=== PATIENT | male | born 1950 | race Caucasian/White ===

== ENCOUNTER 2018-02-03 09:59 | Outpatient (RCR) | payer OTHER, SELFPAY ==
[2018-02-03 10:29] VITALS: BP 108/55; PULSE 60; RESP 16; TEMP 35.8; BMI 26.2
--- NOTE | 2018-02-03 12:07 | WC ---
PT COMES WITHOUT MED LIST, RECENT H&P, RECENT SURGICAL NOTES FROM F. CALLED AND SPOKE W/ HIS NURSE. SHE WILL FAX WHAT SHE HAS AVAILABLE NOW.
--- NOTE | 2018-02-03 17:20 | PCM.WC.HP ---
(1) Ulcer of right lower extremity with fat layer exposed Status: Acute Code(s): L97.912 - Non-pressure chronic ulcer of unspecified part of right lower leg with fat layer exposed (2) Ulcer of left lower extremity with fat layer exposed Status: Acute Code(s): L97.922 - Non-pressure chronic ulcer of unspecified part of left lower leg with fat layer exposed (3) Pressure ulcer, heel, left, unstageable Status: Acute Code(s): L89.620 - Pressure ulcer of left heel, unstageable (4) Diabetic ulcer of left foot Status: Acute Code(s): E11.621 - Type 2 diabetes mellitus with foot ulcer; L97.529 - Non-pressure chronic ulcer of other part of left foot with unspecified severity (5) Peripheral arterial disease Status: Acute Code(s): I73.9 - Peripheral vascular disease, unspecified (6) BKA stump complication Status: Acute Code(s): T87.9 - Unspecified complications of amputation stump (7) S/P BKA (below knee amputation) unilateral Status: Acute Code(s): Z89.519 - Acquired absence of unspecified leg below knee (8) Charcot foot due to diabetes mellitus Status: Acute Code(s): E11.610 - Type 2 diabetes mellitus with diabetic neuropathic arthropathy (9) Charcot ankle Status: Acute Code(s): M14.679 - Charcot's joint, unspecified ankle and foot History of Present Illness Date of Service: 02/03/18 Chief Complaint: Bilateral lower extremity ulcers. Stump complication of right BKA. History of Wound: Mr. Merchant is a 68yo with an extensive PMH who presents here due to chronic non healing bilateral lower extremity ulcers. He recently had a BKA of his right lower extremity due to PAD and a non healing foot ulcer. Per patient, he initially had a Toe amputation but went on further to a BKA due to non healing wound. BKA was sent to have been in [facility] in [place]. He reports subssequently developing stump complication after surgery and has used a wound vac to the wound. His other right extremity ulcer was said to be due to trauma and he has been applying betadine in the long term. He is unsure of how he sustained his left lower extremity ulcers. He states that he had vascular studies of his left lower extremity before his BKA and to the best of his knowledge, he does not have any vascular insufficiency. He has several alvarez ulcers and an extensive heel ulcer with sinificnat eschar formation. He admits to being predominantly sedentary. He otherwise states that he feels well and denies chills, fever, nausea, vomiting or any change in bowel habits. He resides in a long term. Past Medical History Past Medical History: Chronic Problems Open wound of plantar aspect of foot (Chronic) Orthostatic hypotension dysautonomic syndrome (Chronic) CKD (chronic kidney disease), stage III (Chronic) CAD (coronary artery disease) (Chronic) s/p cabg x 3 2010 5 stents last 2006 MRSA bacteremia (Chronic) Diabetic foot infection (Chronic) Diabetes (Chronic) Surgical History: - - RLE stent, BL LE angioplasty, cardiac stents, cardiac catheterizations, CABG x 3, toe amputation. Allergies/Adverse Reactions: Allergies atorvastatin calcium [From Lipitor] Adverse Reaction (Verified 07/30/15 16:32) SEVERE LEG CRAMPS Home Medications: Ambulatory Orders Medication Instructions Recorded Amiodarone HCl [Pacerone] 100 mg PO DAILY 08/02/13 Aspirin [Aspirin, Baby] 81 mg PO DAILY@0800 08/02/13 Carvedilol [Coreg (Beta Farideh)] 6.25 mg PO BID 08/02/13 Finasteride [Proscar] 5 mg PO DAILY 08/02/13 Furosemide [Lasix] 80 mg PO BIDLX 08/02/13 Insulin Glargine [Lantus SoloStar 12 units SC QHS 08/02/13 Pen] Levothyroxine [Synthroid] 125 mcg PO DAILY 08/02/13 Novolog Flexpen 14 units SC TIDCM 08/02/13 Pravastatin [Pravachol] 80 mg PO DAILY 08/02/13 Spironolactone [Aldactone] 50 mg PO DAILY 08/02/13 Linacolotide [Linzess] 145 mcg PO 07/30/15 blood sugar diagnostic strips See Dose Instructions .ROUTE 09/08/17 [id number] - Family History Maternal No pertinent history Smoking Status: Never smoker Review of Systems Constitutional: Denies: Anorexia, Chills, Fever Eyes: Denies: Pain, Redness HEENT: Denies: Difficulty Swallowing, Ear Pain, Head Aches Cardiovascular: Denies: Chest Pain, Chest Tightness Respiratory: Denies: Hemoptysis, Wheezing Gastrointestinal: Denies: Abdominal Pain, Hematemesis, Vomiting Skin: Denies: Jaundice - Physical Exam Vital Signs Temp Pulse Resp BP 96.4 F L 60 16 108/55 L 02/03/18 10:29 02/03/18 10:29 02/03/18 10:29 02/03/18 10:29 General: Alert, Oriented x3, Cooperative, No apparent distress HEENT: Atraumatic, Normocephalic Oral: Moist Mucosa Neck: Supple Lungs: Normal air movement Abdomen: Non Tender Extremities: No cyanosis, Edema Skin: Ulcer/ Wound Wound Measurements and Assessment WC - Nurse 1 - General Ulcer Measurement Start: 02/03/18 10:00 Freq: Status: Active Protocol: Activity Type Activity Date Activity User E-Sign Co-Sign Detail Recorded Client Recorded Date Recorded By Document 02/03/18 10:29 [facility] [id number] 02/03/18 11:00 [facility] 02/03/18 10:29 Wound Center Nurse 1 [Ulcer Assessment] #7- LT 3RD TOE DORSAL -Combined with other wound No -Current Size (cm) - Length 0.3 -Current Size (cm) - Width 0.5 -Current Size (cm) - Depth 0.1 -Total Square Cm 0.15 -Date of Last Picture (Recall this 02/03/18 field) -Photo Taken Yes -Epithelialization None Present -Tunneling No -Undermining/Tunneling No -Circular Undermining No -Exudate Amt None Present (0 %) -Wound Margin Distinct, Outline Attached -Granulation Amt None Present (0 %) -Slough/Fibrin Yes -Necrosis Amt Large (67-100%) -Necrotic Tissue Type Eschar -Structure Exposed N/A -Texture (Eliza-wound Skin Appearance) Scarring -Moisture (Eliza-wound Skin Appearance Dry/Scaly ) -Color (Eliza-wound Skin Appearance) Erythema -Temperature (Eliza-wound Skin No Abnormality Appearance) (Pt Warm) -Tenderness on Palpation (Eliza-wound No Skin Appearance) -Ulcer Cleansing Rinsed/ Irrigated with Saline -Foul Odor after Cleansing No -Anesthetic Used 5% Lidocaine Gel #6- LT HEEL -Combined with other wound No -Current Size (cm) - Length 4.6 -Current Size (cm) - Width 6.5 -Current Size (cm) - Depth 0.1 -Total Square Cm 29.90 -Date of Last Picture (Recall this 02/03/18 field) -Photo Taken Yes -Epithelialization None Present -Tunneling No -Undermining/Tunneling No -Circular Undermining No -Exudate Amt None Present (0 %) -Wound Margin Distinct, Outline Attached -Granulation Amt None Present (0 %) -Slough/Fibrin Yes -Necrosis Amt Large (67-100%) -Necrotic Tissue Type Eschar -Structure Exposed N/A -Texture (Eliza-wound Skin Appearance) Scarring -Moisture (Eliza-wound Skin Appearance Dry/Scaly ) -Color (Eliza-wound Skin Appearance) Erythema -Temperature (Eliza-wound Skin No Abnormality Appearance) (Pt Warm) -Tenderness on Palpation (Eliza-wound No Skin Appearance) -Ulcer Cleansing Rinsed/ Irrigated with Saline -Foul Odor after Cleansing No -Anesthetic Used 5% Lidocaine Gel #5- LT ALVAREZ CLUSTER -Combined with other wound No -Current Size (cm) - Length 17 -Current Size (cm) - Width 1.6 -Current Size (cm) - Depth 0.1 -Total Square Cm 27.2 -Date of Last Picture (Recall this 02/03/18 field) -Photo Taken Yes -Epithelialization None Present -Tunneling No -Undermining/Tunneling No -Circular Undermining No -Exudate Amt Small (1-33%) -Exudate Type Serous -Wound Margin Distinct, Outline Attached -Granulation Amt None Present (0 %) -Slough/Fibrin Yes -Necrosis Amt Large (67-100%) -Necrotic Tissue Type Eschar -Structure Exposed N/A -Texture (Eliza-wound Skin Appearance) Scarring -Moisture (Eliza-wound Skin Appearance Dry/Scaly ) -Color (Eliza-wound Skin Appearance) Erythema -Temperature (Eliza-wound Skin No Abnormality Appearance) (Pt Warm) -Tenderness on Palpation (Eliza-wound No Skin Appearance) -Ulcer Cleansing Rinsed/ Irrigated with Saline -Foul Odor after Cleansing No -Anesthetic Used 5% Lidocaine Gel #4- RT LT UPPER LEG -Combined with other wound No -Current Size (cm) - Length 0.9 -Current Size (cm) - Width 1.1 -Current Size (cm) - Depth 0.1 -Total Square Cm 0.99 -Date of Last Picture (Recall this 02/03/18 field) -Photo Taken Yes -Epithelialization None Present -Tunneling No -Undermining/Tunneling No -Circular Undermining No -Exudate Amt None Present (0 %) -Wound Margin Distinct, Outline Attached -Granulation Amt None Present (0 %) -Slough/Fibrin Yes -Necrosis Amt Large (67-100%) -Necrotic Tissue Type Eschar -Structure Exposed N/A -Texture (Eliza-wound Skin Appearance) Scarring -Moisture (Eliza-wound Skin Appearance Dry/Scaly ) -Color (Eliza-wound Skin Appearance) Assessed -Temperature (Eliza-wound Skin No Abnormality Appearance) (Pt Warm) -Tenderness on Palpation (Eliza-wound No Skin Appearance) -Ulcer Cleansing Rinsed/ Irrigated with Saline -Foul Odor after Cleansing No -Anesthetic Used 5% Lidocaine Gel #3- R INFERIOR ALVAREZ POST BKA AMP -Combined with other wound No -Current Size (cm) - Length 2.2 -Current Size (cm) - Width 3.9 -Current Size (cm) - Depth 1.1 -Total Square Cm 8.58 -Date of Last Picture (Recall this 02/03/18 field) -Photo Taken Yes -Epithelialization None Present -Tunneling No -Undermining/Tunneling No -Circular Undermining No -Exudate Amt Medium (34-66%) -Exudate Type Serosanguineous -Wound Margin Distinct, Outline Attached -Granulation Amt Medium (34-66%) -Granulation Quality [place] -Slough/Fibrin Yes -Necrosis Amt Small (1-33%) -Structure Exposed N/A -Texture (Eliza-wound Skin Appearance) Scarring -Moisture (Eliza-wound Skin Appearance Assessed ) Dry/Scaly -Color (Eliza-wound Skin Appearance) Erythema -Temperature (Eliza-wound Skin No Abnormality Appearance) (Pt Warm) -Tenderness on Palpation (Eliza-wound No Skin Appearance) -Ulcer Cleansing Rinsed/ Irrigated with Saline -Foul Odor after Cleansing No -Anesthetic Used 5% Lidocaine Gel 2- R SUPERIOR ALVAREZ CLUSTER -Combined with other wound No -Current Size (cm) - Length 4.3 -Current Size (cm) - Width 2.2 -Current Size (cm) - Depth 0.1 -Total Square Cm 9.46 -Date of Last Picture (Recall this 02/03/18 field) -Photo Taken Yes -Epithelialization None Present -Tunneling No -Undermining/Tunneling No -Circular Undermining No -Exudate Amt Small (1-33%) -Exudate Type Serosanguineous -Wound Margin Distinct, Outline Attached -Granulation Amt None Present (0 %) -Slough/Fibrin Yes -Necrosis Amt Large (67-100%) -Necrotic Tissue Type Eschar -Structure Exposed N/A -Texture (Eliza-wound Skin Appearance) Scarring -Moisture (Eliza-wound Skin Appearance Assessed ) -Color (Eliza-wound Skin Appearance) Erythema -Temperature (Eliza-wound Skin No Abnormality Appearance) (Pt Warm) -Tenderness on Palpation (Eliza-wound No Skin Appearance) -Ulcer Cleansing Rinsed/ Irrigated with Saline -Foul Odor after Cleansing No -Anesthetic Used 5% Lidocaine Gel [Edema Assessment] -Lower Limb Edema Present Yes -Left Calf (cm) 41.5 -Left Ankle (cm) 26.4 Musculoskeletal: No Muscle Wasting Neurological: Cranial nerves II-XII grossly intact Psych/Mental Status: Normal Affect Debridement Note Wound debrided: Right Alvarez ( Inferior stump ) Wound Grade/Stage: Beltran II Type of Debridement: Excisional debridement Anesthesia Used: 5% Lidocaine Gel Depth: Down to and including healthy tissue, in the subcutaneous layer Percentage of wound debrided: 100 Instrument Used: 5mm curette Tissue Removed: Slough and devitalized tissue Severity: Fat Layer Exposed Amount of bleeding with debridement: Mild Bleeding Controlled with: Pressure Patient tolerated procedure well - Additional Wound Wound debrided: Right Alvarez ( Superior stump ) Wound Grade/Stage: Beltran II Type of Debridement: Excisional debridement Anesthesia Used: 5% Lidocaine Gel Depth: Down to and including healthy tissue, in the subcutaneous layer Percentage of wound debrided: 100 Instrument Used: 5mm curette, #15 blade Tissue Removed: Slough, Eschar and devitalized tissue Severity: Fat Layer Exposed Amount of bleeding with debridement: Mild Bleeding Controlled with: Pressure Patient tolerated procedure: Patient tolerated procedure well - Additional Wound Wound debrided: Right lateral lower extremity Wound Grade/Stage: Beltran I Type of Debridement: Excisional debridement Anesthesia Used: 5% Lidocaine Gel Depth: Down to and including healthy tissue, in the subcutaneous layer Percentage of wound debrided: 100 Instrument Used: 5mm curette Tissue Removed: Devitalized tissue Severity: Fat Layer Exposed Amount of bleeding with debridement: Mild Bleeding Controlled with: Pressure Patient tolerated procedure: Patient tolerated procedure well - Additional Wound Wound debrided: Left Alvarez ( Superior ) Wound Grade/Stage: Beltran II Type of Debridement: Excisional debridement Anesthesia Used: 5% Lidocaine Gel Depth: Down to and including healthy tissue, in the subcutaneous layer Instrument Used: 5mm curette Tissue Removed: Slough and devitalized tissue Severity: Fat Layer Exposed Amount of bleeding with debridement: Mild Bleeding Controlled with: Pressure Patient tolerated procedure: Patient tolerated procedure well - Additional Wound Wound debrided: Left Alvarez ( Inferior ) Wound Grade/Stage: Beltran II Type of Debridement: Excisional debridement Anesthesia Used: 5% Lidocaine Gel Depth: Down to and including healthy tissue, in the subcutaneous layer Percentage of wound debrided: 100 Instrument Used: 5mm curette Tissue Removed: Slough and devitalized tissue Severity: Fat Layer Exposed Amount of bleeding with debridement: Mild Bleeding Controlled with: Pressure Patient tolerated procedure: Patient tolerated procedure well - Additional Wound Wound debrided: Left Toe Wound Grade/Stage: Beltran I Type of Debridement: Excisional debridement Anesthesia Used: 5% Lidocaine Gel Depth: Down to and including healthy tissue, in the subcutaneous layer Percentage of wound debrided: 100 Instrument Used: 5mm curette Tissue Removed: Slough and devitalized tissue Severity: Fat Layer Exposed Amount of bleeding with debridement: Mild Bleeding Controlled with: Pressure Patient tolerated procedure: Patient tolerated procedure well Assessment/Plan Assessment: Bilateral lower extremity ulcers. BKA stump complication. Peripheral arterial disease. Type 2 Diabetes Mellitus. Non healing wounds. Pressure ulcer. Plan: Mr. Merchant presents with chronic bilayeral lower extremity ulcers. He has been managed at his long term and has applied Betadine to his ulcers. At some point, he also had a wound Vac to his right stump wound but is currently without one. As stated in HPI, patient denies any PAD on the left but has significnat ulceration of the left lower extremity. Also has significant Charcot deformity of the foot with an old ( healed ) plantar ulcer. He has followed up with podiatry ( Dr. Allen ) in the past. Debridement of all ulcers done as documented above with only scoring done of the left heel ulcer due to significant thickened eschar. Cultures also taken. Previous work up requested including vascular studies. Apply Santyl daily to all ulcers. 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 Increased protein intake and supplements. Advised to follow up closely with his Postulant. Optimal blood sugar control also recommended. Follow up with PCP. Advised to call with any questions or concerns. Follow up in 1 week.
--- NOTE | 2018-02-03 17:30 | HP.PCM_ITS ---
(1) Ulcer of right lower extremity with fat layer exposed Status: Acute Code(s): L97.912 - Non-pressure chronic ulcer of unspecified part of right lower leg with fat layer exposed (2) Ulcer of left lower extremity with fat layer exposed Status: Acute Code(s): L97.922 - Non-pressure chronic ulcer of unspecified part of left lower leg with fat layer exposed (3) Pressure ulcer, heel, left, unstageable Status: Acute Code(s): L89.620 - Pressure ulcer of left heel, unstageable (4) Diabetic ulcer of left foot Status: Acute Code(s): E11.621 - Type 2 diabetes mellitus with foot ulcer; L97.529 - Non-pressure chronic ulcer of other part of left foot with unspecified severity (5) Peripheral arterial disease Status: Acute Code(s): I73.9 - Peripheral vascular disease, unspecified (6) BKA stump complication Status: Acute Code(s): T87.9 - Unspecified complications of amputation stump (7) S/P BKA (below knee amputation) unilateral Status: Acute Code(s): Z89.519 - Acquired absence of unspecified leg below knee (8) Charcot foot due to diabetes mellitus Status: Acute Code(s): E11.610 - Type 2 diabetes mellitus with diabetic neuropathic arthropathy (9) Charcot ankle Status: Acute Code(s): M14.679 - Charcot's joint, unspecified ankle and foot History of Present Illness Date of Service: 02/03/18 Chief Complaint: Bilateral lower extremity ulcers. Stump complication of right BKA. History of Wound: Mr. Merchant is a 68yo with an extensive PMH who presents here due to chronic non healing bilateral lower extremity ulcers. He recently had a BKA of his right lower extremity due to PAD and a non healing foot ulcer. Per patient, he initially had a Toe amputation but went on further to a BKA due to non healing wound. BKA was sent to have been in [facility] in [place]. He reports subssequently developing stump complication after surgery and has used a wound vac to the wound. His other right extremity ulcer was said to be due to trauma and he has been applying betadine in the [facility]. He is unsure of how he sustained his left lower extremity ulcers. He states that he had vascular studies of his left lower extremity before his BKA and to the best of his knowledge, he does not have any vascular insufficiency. He has several alvarez ulcers and an extensive heel ulcer with sinificnat eschar formation. He admits to being predominantly sedentary. He otherwise states that he feels well and denies chills, fever, nausea, vomiting or any change in bowel habits. He resides in a [facility]. Past Medical History Past Medical History: Chronic Problems Open wound of plantar aspect of foot (Chronic) Orthostatic hypotension dysautonomic syndrome (Chronic) CKD (chronic kidney disease), stage III (Chronic) CAD (coronary artery disease) (Chronic) s/p cabg x 3 2010 5 stents last 2006 MRSA bacteremia (Chronic) Diabetic foot infection (Chronic) Diabetes (Chronic) Surgical History: - - RLE stent, BL LE angioplasty, cardiac stents, cardiac catheterizations, CABG x 3, toe amputation. Allergies/Adverse Reactions: Allergies atorvastatin calcium [From Lipitor] Adverse Reaction (Verified 07/30/15 16:32) SEVERE LEG CRAMPS Home Medications: Ambulatory Orders Medication Instructions Recorded Amiodarone HCl [Pacerone] 100 mg PO DAILY 08/02/13 Aspirin [Aspirin, Baby] 81 mg PO DAILY@0800 08/02/13 Carvedilol [Coreg (Beta Farideh)] 6.25 mg PO BID 08/02/13 Finasteride [Proscar] 5 mg PO DAILY 08/02/13 Furosemide [Lasix] 80 mg PO BIDLX 08/02/13 Insulin Glargine [Lantus SoloStar 12 units SC QHS 08/02/13 Pen] Levothyroxine [Synthroid] 125 mcg PO DAILY 08/02/13 Novolog Flexpen 14 units SC TIDCM 08/02/13 Pravastatin [Pravachol] 80 mg PO DAILY 08/02/13 Spironolactone [Aldactone] 50 mg PO DAILY 08/02/13 Linacolotide [Linzess] 145 mcg PO 07/30/15 blood sugar diagnostic strips See Dose Instructions .ROUTE 09/08/17 .[id number] ea - Family History Maternal No pertinent history Smoking Status: Never smoker Review of Systems Constitutional: Denies: Anorexia, Chills, Fever Eyes: Denies: Pain, Redness HEENT: Denies: Difficulty Swallowing, Ear Pain, Head Aches Cardiovascular: Denies: Chest Pain, Chest Tightness Respiratory: Denies: Hemoptysis, Wheezing Gastrointestinal: Denies: Abdominal Pain, Hematemesis, Vomiting Skin: Denies: Jaundice - Physical Exam Vital Signs Temp Pulse Resp BP 96.4 F L 60 16 108/55 L 02/03/18 10:29 02/03/18 10:29 02/03/18 10:29 02/03/18 10:29 General: Alert, Oriented x3, Cooperative, No apparent distress HEENT: Atraumatic, Normocephalic Oral: Moist Mucosa Neck: Supple Lungs: Normal air movement Abdomen: Non Tender Extremities: No cyanosis, Edema Skin: Ulcer/ Wound Wound Measurements and Assessment WC - Nurse 1 - General Ulcer Measurement Start: 02/03/18 10:00 Freq: Status: Active Protocol: Activity Type Activity Date Activity User E-Sign Co-Sign Detail Recorded Client Recorded Date Recorded By Document 02/03/18 10:29 [facility] [id number] 02/03/18 11:00 [facility] 02/03/18 10:29 Wound Center Nurse 1 [Ulcer Assessment] #7- LT 3RD TOE DORSAL -Combined with other wound No -Current Size (cm) - Length 0.3 -Current Size (cm) - Width 0.5 -Current Size (cm) - Depth 0.1 -Total Square Cm 0.15 -Date of Last Picture (Recall this 02/03/18 field) -Photo Taken Yes -Epithelialization None Present -Tunneling No -Undermining/Tunneling No -Circular Undermining No -Exudate Amt None Present (0 %) -Wound Margin Distinct, Outline Attached -Granulation Amt None Present (0 %) -Slough/Fibrin Yes -Necrosis Amt Large (67-100%) -Necrotic Tissue Type Eschar -Structure Exposed N/A -Texture (Eliza-wound Skin Appearance) Scarring -Moisture (Eliza-wound Skin Appearance Dry/Scaly ) -Color (Eliza-wound Skin Appearance) Erythema -Temperature (Eliza-wound Skin No Abnormality Appearance) (Pt Warm) -Tenderness on Palpation (Eliza-wound No Skin Appearance) -Ulcer Cleansing Rinsed/ Irrigated with Saline -Foul Odor after Cleansing No -Anesthetic Used 5% Lidocaine Gel #6- LT HEEL -Combined with other wound No -Current Size (cm) - Length 4.6 -Current Size (cm) - Width 6.5 -Current Size (cm) - Depth 0.1 -Total Square Cm 29.90 -Date of Last Picture (Recall this 02/03/18 field) -Photo Taken Yes -Epithelialization None Present -Tunneling No -Undermining/Tunneling No -Circular Undermining No -Exudate Amt None Present (0 %) -Wound Margin Distinct, Outline Attached -Granulation Amt None Present (0 %) -Slough/Fibrin Yes -Necrosis Amt Large (67-100%) -Necrotic Tissue Type Eschar -Structure Exposed N/A -Texture (Elzia-wound Skin Appearance) Scarring -Moisture (Eliza-wound Skin Appearance Dry/Scaly ) -Color (Eliza-wound Skin Appearance) Erythema -Temperature (Eliza-wound Skin No Abnormality Appearance) (Pt Warm) -Tenderness on Palpation (Eliza-wound No Skin Appearance) -Ulcer Cleansing Rinsed/ Irrigated with Saline -Foul Odor after Cleansing No -Anesthetic Used 5% Lidocaine Gel #5- LT ALVAREZ CLUSTER -Combined with other wound No -Current Size (cm) - Length 17 -Current Size (cm) - Width 1.6 -Current Size (cm) - Depth 0.1 -Total Square Cm 27.2 -Date of Last Picture (Recall this 02/03/18 field) -Photo Taken Yes -Epithelialization None Present -Tunneling No -Undermining/Tunneling No -Circular Undermining No -Exudate Amt Small (1-33%) -Exudate Type Serous -Wound Margin Distinct, Outline Attached -Granulation Amt None Present (0 %) -Slough/Fibrin Yes -Necrosis Amt Large (67-100%) -Necrotic Tissue Type Eschar -Structure Exposed N/A -Texture (Eliza-wound Skin Appearance) Scarring -Moisture (Eliza-wound Skin Appearance Dry/Scaly ) -Color (Eliza-wound Skin Appearance) Erythema -Temperature (Eliza-wound Skin No Abnormality Appearance) (Pt Warm) -Tenderness on Palpation (Eliza-wound No Skin Appearance) -Ulcer Cleansing Rinsed/ Irrigated with Saline -Foul Odor after Cleansing No -Anesthetic Used 5% Lidocaine Gel #4- RT LT UPPER LEG -Combined with other wound No -Current Size (cm) - Length 0.9 -Current Size (cm) - Width 1.1 -Current Size (cm) - Depth 0.1 -Total Square Cm 0.99 -Date of Last Picture (Recall this 02/03/18 field) -Photo Taken Yes -Epithelialization None Present -Tunneling No -Undermining/Tunneling No -Circular Undermining No -Exudate Amt None Present (0 %) -Wound Margin Distinct, Outline Attached -Granulation Amt None Present (0 %) -Slough/Fibrin Yes -Necrosis Amt Large (67-100%) -Necrotic Tissue Type Eschar -Structure Exposed N/A -Texture (Eliza-wound Skin Appearance) Scarring -Moisture (Eliza-wound Skin Appearance Dry/Scaly ) -Color (Eliza-wound Skin Appearance) Assessed -Temperature (Eliza-wound Skin No Abnormality Appearance) (Pt Warm) -Tenderness on Palpation (Eliza-wound No Skin Appearance) -Ulcer Cleansing Rinsed/ Irrigated with Saline -Foul Odor after Cleansing No -Anesthetic Used 5% Lidocaine Gel #3- R INFERIOR ALVAREZ POST BKA AMP -Combined with other wound No -Current Size (cm) - Length 2.2 -Current Size (cm) - Width 3.9 -Current Size (cm) - Depth 1.1 -Total Square Cm 8.58 -Date of Last Picture (Recall this 02/03/18 field) -Photo Taken Yes -Epithelialization None Present -Tunneling No -Undermining/Tunneling No -Circular Undermining No -Exudate Amt Medium (34-66%) -Exudate Type Serosanguineous -Wound Margin Distinct, Outline Attached -Granulation Amt Medium (34-66%) -Granulation Quality [place] -Slough/Fibrin Yes -Necrosis Amt Small (1-33%) -Structure Exposed N/A -Texture (Eliza-wound Skin Appearance) Scarring -Moisture (Eliza-wound Skin Appearance Assessed ) Dry/Scaly -Color (Eliza-wound Skin Appearance) Erythema -Temperature (Eliza-wound Skin No Abnormality Appearance) (Pt Warm) -Tenderness on Palpation (Eliza-wound No Skin Appearance) -Ulcer Cleansing Rinsed/ Irrigated with Saline -Foul Odor after Cleansing No -Anesthetic Used 5% Lidocaine Gel 2- R SUPERIOR ALVAREZ CLUSTER -Combined with other wound No -Current Size (cm) - Length 4.3 -Current Size (cm) - Width 2.2 -Current Size (cm) - Depth 0.1 -Total Square Cm 9.46 -Date of Last Picture (Recall this 02/03/18 field) -Photo Taken Yes -Epithelialization None Present -Tunneling No -Undermining/Tunneling No -Circular Undermining No -Exudate Amt Small (1-33%) -Exudate Type Serosanguineous -Wound Margin Distinct, Outline Attached -Granulation Amt None Present (0 %) -Slough/Fibrin Yes -Necrosis Amt Large (67-100%) -Necrotic Tissue Type Eschar -Structure Exposed N/A -Texture (Eliza-wound Skin Appearance) Scarring -Moisture (Eliza-wound Skin Appearance Assessed ) -Color (Eliza-wound Skin Appearance) Erythema -Temperature (Eliza-wound Skin No Abnormality Appearance) (Pt Warm) -Tenderness on Palpation (Eliza-wound No Skin Appearance) -Ulcer Cleansing Rinsed/ Irrigated with Saline -Foul Odor after Cleansing No -Anesthetic Used 5% Lidocaine Gel [Edema Assessment] -Lower Limb Edema Present Yes -Left Calf (cm) 41.5 -Left Ankle (cm) 26.4 Musculoskeletal: No Muscle Wasting Neurological: Cranial nerves II-XII grossly intact Psych/Mental Status: Normal Affect Debridement Note Wound debrided: Right Alvarez ( Inferior stump ) Wound Grade/Stage: Beltran II Type of Debridement: Excisional debridement Anesthesia Used: 5% Lidocaine Gel Depth: Down to and including healthy tissue, in the subcutaneous layer Percentage of wound debrided: 100 Instrument Used: 5mm curette Tissue Removed: Slough and devitalized tissue Severity: Fat Layer Exposed Amount of bleeding with debridement: Mild Bleeding Controlled with: Pressure Patient tolerated procedure well - Additional Wound Wound debrided: Right Alvarez ( Superior stump ) Wound Grade/Stage: Beltran II Type of Debridement: Excisional debridement Anesthesia Used: 5% Lidocaine Gel Depth: Down to and including healthy tissue, in the subcutaneous layer Percentage of wound debrided: 100 Instrument Used: 5mm curette, #15 blade Tissue Removed: Slough, Eschar and devitalized tissue Severity: Fat Layer Exposed Amount of bleeding with debridement: Mild Bleeding Controlled with: Pressure Patient tolerated procedure: Patient tolerated procedure well - Additional Wound Wound debrided: Right lateral lower extremity Wound Grade/Stage: Beltran I Type of Debridement: Excisional debridement Anesthesia Used: 5% Lidocaine Gel Depth: Down to and including healthy tissue, in the subcutaneous layer Percentage of wound debrided: 100 Instrument Used: 5mm curette Tissue Removed: Devitalized tissue Severity: Fat Layer Exposed Amount of bleeding with debridement: Mild Bleeding Controlled with: Pressure Patient tolerated procedure: Patient tolerated procedure well - Additional Wound Wound debrided: Left Alvarez ( Superior ) Wound Grade/Stage: Beltran II Type of Debridement: Excisional debridement Anesthesia Used: 5% Lidocaine Gel Depth: Down to and including healthy tissue, in the subcutaneous layer Instrument Used: 5mm curette Tissue Removed: Slough and devitalized tissue Severity: Fat Layer Exposed Amount of bleeding with debridement: Mild Bleeding Controlled with: Pressure Patient tolerated procedure: Patient tolerated procedure well - Additional Wound Wound debrided: Left Alvarez ( Inferior ) Wound Grade/Stage: Beltran II Type of Debridement: Excisional debridement Anesthesia Used: 5% Lidocaine Gel Depth: Down to and including healthy tissue, in the subcutaneous layer Percentage of wound debrided: 100 Instrument Used: 5mm curette Tissue Removed: Slough and devitalized tissue Severity: Fat Layer Exposed Amount of bleeding with debridement: Mild Bleeding Controlled with: Pressure Patient tolerated procedure: Patient tolerated procedure well - Additional Wound Wound debrided: Left Toe Wound Grade/Stage: Beltran I Type of Debridement: Excisional debridement Anesthesia Used: 5% Lidocaine Gel Depth: Down to and including healthy tissue, in the subcutaneous layer Percentage of wound debrided: 100 Instrument Used: 5mm curette Tissue Removed: Slough and devitalized tissue Severity: Fat Layer Exposed Amount of bleeding with debridement: Mild Bleeding Controlled with: Pressure Patient tolerated procedure: Patient tolerated procedure well Assessment/Plan Assessment: Bilateral lower extremity ulcers. BKA stump complication. Peripheral arterial disease. Type 2 Diabetes Mellitus. Non healing wounds. Pressure ulcer. Plan: Mr. Merchant presents with chronic bilayeral lower extremity ulcers. He has been managed at his [facility] and has applied Betadine to his ulcers. At some point, he also had a wound Vac to his right stump wound but is currently without one. As stated in HPI, patient denies any PAD on the left but has significnat ulceration of the left lower extremity. Also has significant Charcot deformity of the foot with an old ( healed ) plantar ulcer. He has followed up with podiatry ( Dr. Allen ) in the past. Debridement of all ulcers done as documented above with only scoring done of the left heel ulcer due to significant thickened eschar. Cultures also taken. Previous work up requested including vascular studies. Apply Santyl daily to all ulcers. 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 Increased protein intake and supplements. Advised to follow up closely with his [employer]. Optimal blood sugar control also recommended. Follow up with PCP. Advised to call with any questions or concerns. Follow up in 1 week.
--- NOTE | 2018-02-10 16:04 | CON.PCM_ITS ---
Problem List (1) Ulcer of left lower extremity with fat layer exposed Status: Acute Reason for Consult: infected ulcer Consulted by: Dr. Carey History of Present Illness: The patient is a 68 year old M with PVD, DM, and h/o osteo s/p R BKA in at [facility] in [place]. Was at hospital for extended period of time and just released to [facility] 2-3 weeks ago. Established at wound care here last week. Found to have multiple ulcers on BLE that appeared red and infected. Cxs sent by Dr. Carey. He denies any prior h/o Acinetobacter, but was followed by ID in [place] and was on courses of iv abx. No abx since discharge reportedly. Cxs now with PsA and AcB that is MDR. Feeling ok, no fever, no abd pain, no leg pain. Full ROS performed and neg except as noted above. - Medical History Past Medical History (Chronic Problems): Chronic Problems Peripheral arterial disease (Chronic) S/P BKA (below knee amputation) unilateral (Chronic) Charcot foot due to diabetes mellitus (Chronic) Atrial fibrillation (Chronic) Hypothyroid (Chronic) ESRD (end stage renal disease) (Chronic) Open wound of plantar aspect of foot (Chronic) Orthostatic hypotension dysautonomic syndrome (Chronic) CKD (chronic kidney disease), stage III (Chronic) CAD (coronary artery disease) (Chronic) s/p cabg x 3 2010 5 stents last 2006 MRSA bacteremia (Chronic) Diabetic foot infection (Chronic) Diabetes (Chronic) Allergies/Adverse Reactions: Allergies atorvastatin calcium [From Lipitor] Adverse Reaction (Verified 07/30/15 16:32) SEVERE LEG CRAMPS Home Medications: Ambulatory Orders Medication Instructions Recorded Amiodarone HCl [Pacerone] 200 mg PO DAILY 08/02/13 Aspirin [Aspirin, Baby] 81 mg PO DAILY@0800 08/02/13 Finasteride [Proscar] 5 mg PO DAILY 08/02/13 Levothyroxine [Synthroid] 175 mcg PO DAILY 08/02/13 B Complx/C/Folic/Zinc/Copper/E 1 tablet PO DAILY 02/10/18 [Eql Stress B-Complex Tablet] Bethanechol Chloride 10 mg PO TID 02/10/18 Ergocalciferol [Vitamin D] 50,000 units PO QWEEK 02/10/18 Febuxostat [Uloric] 40 mg PO DAILY 02/10/18 Ferrous Sulfate 325 mg PO BIDCM 02/10/18 Midodrine HCl 10 mg PO TID 02/10/18 Senna [Senokot] 1 tablet PO BID 02/10/18 Vancomycin 125mg/5mL Susp 125 mg PO DAILY 02/10/18 Vital Signs Temp Pulse Resp BP 96.4 F L 60 16 108/55 L 02/03/18 10:29 02/03/18 10:29 02/03/18 10:29 02/03/18 10:29 Oxygen Delivery Method Room Air Weight: 100.244 kg Body Mass Index (BMI) 26.2 Microbiology Past 72 Hours 02/03/18 12:25 Gram Stain - Final Ulcer, Decubitus - Left Foot Wound Culture - Preliminary Pseudomonas aeroginosa Acinetobacter baumannii Anaerobic Culture - Final No anaerobic bacteria isolated. 02/03/18 12:25 Gram Stain - Final Ulcer, Decubitus - Right Foot Wound Culture - Preliminary Pseudomonas aeroginosa Acinetobacter baumannii Anaerobic Culture - Final No anaerobic bacteria isolated. - Other Studies Radiology: [] Other Studies: [] Route of nutrition/ use of supplements: [] Nutritional Intake: [] IV Site: [] Shah Catheter: [] - Physical Exam General: Alert, Oriented x3, Cooperative HEENT: Atraumatic, PERRLA, EOMI Neck: Supple, No Nodes Lungs: Clear to auscultation, Normal air movement Cardiovascular: Regular rate, Regular Rhythm, No murmurs Abdomen: Bowel Sounds Present, Soft, Non Tender, Non-Distended Extremities: No edema, Diminished Peripheral Pulses Skin: Ulcer/ Wound - BLE ulcers with black eschar and mild surrounding erythema. IV Site: Central Line - R neck permacath, no sign of inflammation Musculoskeletal: No Tenderness to Palpation of Joints or Extremities Neurological: Cranial nerves II-XII grossly intact - Assessment/Plan Antibiotics: [] Assessment/Plan: [] L heel and R BKA stump infections with nonhealing ulcers - cxs from both legs with Pseudomonas and XDR Acinetobacter. Spoke with micro lab and requested susceptibility testing for colistin, tigecycline, and minocycline. Clinically stable at this point, but he needs admission for suspected osteo of L heel with a very difficult to treat bacteria. Recommend noncontrast MRI of BLE, podiatry eval, bcx, wound cxs repeat. Ok to hold off on empiric abx while workup pending. If condition worsens, empiric drugs of choice would be cefepime, colistin, and iv minocycline. Thank you for this referral, d/w Dr. Carey and admitting team. Will follow in the hospital.
== END 2018-02-10 23:59 ==
LOC: WC 09:59
PROVIDERS: Family Provider Family Medicine; PCP Family Medicine; Visit Provider Internal Medicine
DX: E11.621 Type 2 diabetes mellitus with foot ulcer (principal); L97.912 Non-pressure chronic ulcer of unspecified part of right lower leg with fat layer exposed; L97.922 Non-pressure chronic ulcer of unspecified part of left lower leg with fat layer exposed; L89.620 Pressure ulcer of left heel, unstageable; I73.9 Peripheral vascular disease, unspecified; Z89.519 Acquired absence of unspecified leg below knee; E11.610 Type 2 diabetes mellitus with diabetic neuropathic arthropathy; Z89.511 Acquired absence of right leg below knee; B95.62 Methicillin resistant Staphylococcus aureus infection as the cause of diseases classified elsewhere; Z95.1 Presence of aortocoronary bypass graft; I25.10 Atherosclerotic heart disease of native coronary artery without angina pectoris; N18.3 Chronic kidney disease, stage 3 (moderate); I48.91 Unspecified atrial fibrillation; E03.9 Hypothyroidism, unspecified; Z79.82 Long term (current) use of aspirin; Z79.4 Long term (current) use of insulin
CPT/HCPCS: 11042; 87070; 87075; 87077; 87184; 87186; 87205; 99204; G0463

== ENCOUNTER 2018-02-10 13:40 | Inpatient (IN) | payer OTHER, MEDICARE, SELFPAY ==
[2018-02-10 14:06] VITALS: BMI 25.4
--- NOTE | 2018-02-10 14:27 | PCA ---
Addendum entered by Omar Wong 02/10/18 15:44: Call placed to [facility] in regards to pt medical records release. Spoke with Anastasia and informed her the physician would now also like to obtain the discharge summary from pt's last visit. Anastasia stated that she sees the request and will process it within the next 10-15 minutes. Will await fax to place on pt chart. Original Note: Faxed release of medical records to [facility] Telephone number is [phone]; fax number is [phone]
[2018-02-10 14:34] VITALS: BMI 25.5
--- NOTE | 2018-02-10 15:56 | NURSING ---
wound photo: right stump
--- NOTE | 2018-02-10 15:56 | NURSING ---
wound photo: right lateral stump
--- NOTE | 2018-02-10 15:57 | NURSING ---
wound photo: left terrazas
--- NOTE | 2018-02-10 15:59 | NURSING ---
wound photo: left plantar foot
--- NOTE | 2018-02-10 16:00 | NURSING ---
wound photo: left heel
--- NOTE | 2018-02-10 16:00 | NURSING ---
wound photo: left lateral lower leg
--- NOTE | 2018-02-10 16:39 | MRI_ITS ---
PROCEDURE: MRI LOWER EXTREMITY RIGHT TIBIA/FIBULA REASON FOR EXAM: Male, 68 years old. Right stump osteomyelitis. Open wound. TECHNIQUE: Standardized fat and water weighted pulse sequences were obtained in all 3 orthogonal planes. COMPARISON: None. FINDINGS: There is a below the knee amputation of the tibia and fibula. There is focal bone marrow edema with T2 signal hyperintensity and osteomyelitis of the distal stump of the tibia, series 5 images through . There is focal soft tissue defect consistent with wound . MRI/Lower Ext Joint Only (Routine) IMPRESSION: Osteomyelitis of the tibial stump. Electronically Signed: Ok Woodard MD at 23:25 EDT , Service support ,
--- NOTE | 2018-02-10 16:39 | MRI_ITS ---
STUDY: MRI LEFT MIDFOOT REASON FOR EXAM: Male, 68 years old. Nonhealing wound. TECHNIQUE: Standardized fat and water weighted pulse sequences were obtained in all 3 orthogonal planes. COMPARISON: CT April 09, 2014 FINDINGS: There are plantar and dorsal heel spurs. There is moderate degenerative arthrosis of the talonavicular articulation. There is moderate degenerative arthrosis of the calcaneocuboid articulation. There is moderate degenerative arthrosis of the navicular-cuneiform articulation. There is moderate degenerative arthrosis of the intercuneiform articulation. There is focal skin thickening and defect on the plantar aspect consistent with. There is mild marrow edema with T2 signal hyperintensity of the cuboid, series 4 images and There is mild degenerative arthrosis of the first tarsometatarsal articulation. Normal Lisfranc ligament. There is moderate degenerative arthrosis of the second and third tarsometatarsal articulations. There is moderate degenerative arthrosis of the cuboid fourth and cuboid fifth tarsometatarsal articulations. Normal first through fifth metatarsi. Normal tibialis anterior tendon. Normal extensor hallucis longus tendon. Normal extensor digitorum longus tendons. Normal peroneus longus tendon and distal insertion. Normal peroneus brevis tendon and distal insertion. MRI/Lower Ext/No Jt/w/o IMPRESSION: Osteomyelitis of the cuboid. Advanced arthritic change consistent with Charcot arthropathy Electronically Signed: Ok Woodard MD at 23:34 EDT , Service support ,
--- NOTE | 2018-02-10 16:44 | HP.PCM_ITS ---
Addendum entered and electronically signed by MANUEL Galindo 02/10/18 17:52: Code Visit Problem 8 - has been on oral Vanco for C diff - will order to continue, stools have been improving to more normal consistency. no abd pain/no blood in stool Original Note: History and Physical Problem List (1) Diabetic ulcer of left foot Status: Acute (2) BKA stump complication Status: Acute (3) Atrial fibrillation Status: Chronic (4) Hypothyroid Status: Chronic (5) ESRD (end stage renal disease) Status: Chronic (6) Charcot foot due to diabetes mellitus Status: Chronic (7) Peripheral arterial disease Status: Chronic (8) S/P BKA (below knee amputation) unilateral Status: Chronic (9) CAD (coronary artery disease) Status: Chronic Comment: s/p cabg x 3 2010 5 stents last 2006 (10) Diabetes Status: Chronic Qualifiers: Diabetes mellitus type: type 2 History of Present Illness Date of Admission: 02/10/18 Chief Complaint: nonhealing wounds The patient is a 68 year old M with a hx of nonhealing wounds on his left foot and right BKA stump, hx of osteomyelitis and bacteremia with MRSA, complicated by PAD s/p angioplasty, hx of ESRD on dialysis, current SNF resident, hx of CAD s/p CABG 2010, Atrial fibrillation s/p cardioversion, DMt2, hypothyroid, HLD, who presents to the hospital as a direct admit from the [place] wound [facility] center where he is being seen for nonhealing wounds on his right BKA stump and left heel. These wounds have not been improving, and have recently grown 2 multidrug resistant organisms including pseudomonas and acinetobacter. He has been treated multiple times at [facility] in [place] this year where he has undergone toe amputation, followed by LE angioplasty, followed by right BKA. He follows Dr. Allen for podiatry. He was noted to have continued slough from the right stump and left terrazas wound, and dry wounds on his feet the most significant of which is a large black heel ulcer. He also has itching and discomfort in his groin and coccyx/buttocks area appearing as candidal changes. He has been very weak and staying in residential since last hospital discharge. Despite the weakness and wounds he has felt overall well. He is currently on Vancomycin liquid for C diff, his stools have been normalizing recently. No nausea, vomiting, diarrhea, cough, SOB, fevers, or chills. He denies worsening of pain at his wounds. [] Past Medical History Past Medical History (Chronic Problems): Chronic Problems Peripheral arterial disease (Chronic) S/P BKA (below knee amputation) unilateral (Chronic) Charcot foot due to diabetes mellitus (Chronic) Atrial fibrillation (Chronic) Hypothyroid (Chronic) ESRD (end stage renal disease) (Chronic) Open wound of plantar aspect of foot (Chronic) Orthostatic hypotension dysautonomic syndrome (Chronic) CKD (chronic kidney disease), stage III (Chronic) CAD (coronary artery disease) (Chronic) s/p cabg x 3 2010 5 stents last 2006 MRSA bacteremia (Chronic) Diabetic foot infection (Chronic) Diabetes (Chronic) Allergies atorvastatin calcium [From Lipitor] Adverse Reaction (Verified 07/30/15 16:32) SEVERE LEG CRAMPS Home Medications: Ambulatory Orders Medication Instructions Recorded Amiodarone HCl [Pacerone] 100 mg PO DAILY 08/02/13 Aspirin [Aspirin, Baby] 81 mg PO DAILY@0800 08/02/13 Carvedilol [Coreg (Beta Farideh)] 6.25 mg PO BID 08/02/13 Finasteride [Proscar] 5 mg PO DAILY 08/02/13 Furosemide [Lasix] 80 mg PO BIDLX 08/02/13 Insulin Glargine [Lantus SoloStar 12 units SC QHS 08/02/13 Pen] Levothyroxine [Synthroid] 125 mcg PO DAILY 08/02/13 Novolog Flexpen 14 units SC TIDCM 08/02/13 Pravastatin [Pravachol] 80 mg PO DAILY 08/02/13 Spironolactone [Aldactone] 50 mg PO DAILY 08/02/13 Linacolotide [Linzess] 145 mcg PO 07/30/15 blood sugar diagnostic strips See Dose Instructions .ROUTE 09/08/17 .MEDSUPPLY #[id number] ea Surgical History: - - RLE stent, BL LE angioplasty, cardiac stents, cardiac catheterizations, CABG x 3, toe amputation. Psychiatric History: No pertinent psych hx Lives: Alone Smoking Status: Former smoker Tobacco Use: Non-smoker, Chew Alcohol: None - *Family History Maternal History Items: - - psychiatric disorders Paternal History Items: Cancer - colon, Heart Disease Review of Systems Constitutional: Denies: Chills, Fever, Weight Change HEENT: Denies: Head Aches, Sinus Congestion, Sinus Drainage Cardiovascular: Denies: Chest Pain, Palpitations Respiratory: Denies: Cough, Shortness of breath at rest, Sputum production Gastrointestinal: Denies: Abdominal Pain, Nausea, Vomiting Genitourinary: Denies: Dysuria Musculoskeletal: Reports: - - nonhealing wounds as above. Denies: Joint Pain, Joint Tenderness Skin: Denies: Rash, Wounds Neurological: Denies: Numbness, Tingling, Focal weakness Psychiatric: Denies: Anxiety, Depression, Homicidal Ideations, Suicidal Ideations Hematologic/ Lymphatic: Denies: Easy Bruising, Easy Bleeding VTE Information - Inpt Only VTE Present on Admission: No - Physical Exam General: Alert, Oriented x3, Cooperative HEENT: Atraumatic, PERRLA, EOMI, Normocephalic Neck: Supple, No JVD, Negative Carotid Bruits Lungs: Clear to auscultation, Normal air movement Cardiovascular: Regular rate, No murmurs Abdomen: Bowel Sounds Present, Soft, Non Tender Extremities: No edema, Capillary Refill Less than 3 Seconds, - - right stump with open wound with significant slough. left terrazas open with slough, left heel large black annular ring, charcot foot left. Skin: - - pubic, thigh, groin, coccyx, gluteal cleft with candidiasis. Musculoskeletal: No Tenderness to Palpation of Joints or Extremities Neurological: Cranial nerves II-XII grossly intact Psych/Mental Status: Normal Affect, Appropriate, Alert and oriented to time, place, person, mood and affect Vital Signs Temp Pulse Resp BP Pulse Ox 97.8 F 60 18 112/54 96 07/29/15 19:50 07/30/15 03:09 07/30/15 03:09 07/30/15 03:09 07/30/15 03:09 Oxygen Delivery Method Room Air Weight: 109.316 kg Body Mass Index (BMI) 28.5 Assessment/Plan All Active Problems Ulcer of right lower extremity with fat layer exposed (Acute) Ulcer of left lower extremity with fat layer exposed (Acute) Pressure ulcer, heel, left, unstageable (Acute) Diabetic ulcer of left foot (Acute) BKA stump complication (Acute) Charcot ankle (Acute) Cellulitis of left leg (Resolved) 1. Non healing diabetic wounds right BKA stump and left charcot heel, left open sloughing terrazas wound - recent cultures with Pseudomonas aeruginosa, acinetobacter baumannii, with heavy antibiotic resistance. D/w Dr. Bernabe - defer abx for now. -Concern for underlying osteo - will obtain MRI of the right stump and left foot - no contrast. -obtain blood cultures, repeat wound cultures discharge from both stump and left terrazas. Left charcot heal dry. -Consult Ortho for right stump -Consult his jigger operator for left foot -Wound care nurse consult -Dietary consult for supplementation -Hx MRSA osteo and bacteremia. -Placed a request for her PVRs and last discharge summary from [facility]. 2. PAD complicating above - Obtain PVR's from [facility] this year. Recent angioplasty there this year. 3. T2DM - complicating above - start home insulin therapy + ssi and titrate to response 4. ESRD - c/s Dr. Woody. 5. CAD - prior CABG - cardiologists at [facility] in [place]. Continue home meds. Prior CABG 2010, prior [place]. 6. Hx PAF - currently SR. Not on OAC. S/p Cardioversion 7. Hypothyroid - synthroid DVT ppx: deferred until baseline labs are back DC planning: return to SNF at [place]. This patient was seen by Kraig Arriola PA-C under the supervision of Doctor Michael.
--- NOTE | 2018-02-10 16:49 | PCM.CONS.R ---
Problem List (1) ESRD (end stage renal disease) Status: Chronic Consultation - Renal 02/10/18 PCP/ Referring MD: Requesting physician: Dr Michael Primary care physician: Silke Orozco Reason for Consultation:: ESRD - History of Present Illness History of Present Illness: The patient is a 68 year old M admitted to hospital today for non healing ulcer of right BKA stump apparently was recently at [facility] with similar issues. renal consulted for dialysis needs started dialysis about 5 weeks ago. had CKD prior to that. Access is RIJ TDC goes to [facility]. MWF schedule currently denies any complaints - Allergies Allergies: Allergies atorvastatin calcium [From Lipitor] Adverse Reaction (Verified 07/30/15 16:32) SEVERE LEG CRAMPS - Current Medications Current Medications: Current Medications Acetaminophen (Tylenol) 650 mg PO Q6H PRN PRN PRN Reason: PAIN Aspirin (Aspirin, Baby) 81 mg PO DAILY@0800 ABIGAIL Bethanechol Chloride (Urecholine) 10 mg PO TID ABIGAIL Ergocalciferol (Vitamin D) 50,000 unit PO QWEEK ABIGAIL Ferrous Sulfate (Ferrous Sulfate) 325 mg PO BIDCM ABIGAIL Finasteride (Proscar) 5 mg PO DAILY [facility] Insulin Human Lispro (Humalog Kwikpen (Bkc)) 0 unit SC ACHS ABIGAIL PRN Reason: Protocol Levothyroxine Sodium (Synthroid) 175 mcg PO DAILY ABIGAIL Non-Formulary Medication (Amiodarone Hcl [Pacerone]) 200 mg PO DAILY [facility] Non-Formulary Medication (B Complx/C/Folic/Zinc/Copper/E [Eql Stress B-Complex Tablet]) 1 tablet PO DAILY [facility] Non-Formulary Medication (Midodrine Hcl [Midodrine Hcl]) 10 mg PO TID ABIGAIL Non-Formulary Medication (Vancomycin 125mg/5ml Susp) 125 mg PO DAILY [facility] Nutritional Formula (Nepro Carb Steady) 120 ml PO 4X/DAY ABIGAIL Nystatin (Mycostatin Powder) 1 applic TOPICAL TID ABIGAIL PRN Reason: Protocol Oxycodone HCl (Oxyir) 5 mg PO Q6H PRN PRN PRN Reason: SEVERE PAIN (6-10/10) Senna (Senokot) 1 tablet PO BID ABIGAIL - Past Medical History Past Medical History (Chronic Problems): Chronic Problems Peripheral arterial disease (Chronic) S/P BKA (below knee amputation) unilateral (Chronic) Charcot foot due to diabetes mellitus (Chronic) Atrial fibrillation (Chronic) Hypothyroid (Chronic) ESRD (end stage renal disease) (Chronic) Open wound of plantar aspect of foot (Chronic) Orthostatic hypotension dysautonomic syndrome (Chronic) CKD (chronic kidney disease), stage III (Chronic) CAD (coronary artery disease) (Chronic) s/p cabg x 3 2010 5 stents last 2006 MRSA bacteremia (Chronic) Diabetic foot infection (Chronic) Diabetes (Chronic) - Past Surgical History Surgical History: - - RLE stent, BL LE angioplasty, cardiac stents, cardiac catheterizations, CABG x 3, toe amputation. - Social History Smoking Status: Never smoker - Family History Maternal History Items: No pertinent history Review of Systems Constitutional: Denies: Chills, Fever, Weight Change HEENT: Denies: Head Aches, Sinus Congestion, Sinus Drainage Cardiovascular: Denies: Chest Pain, Palpitations Respiratory: Denies: Cough, Shortness of breath at rest, Sputum production Gastrointestinal: Denies: Abdominal Pain, Nausea, Vomiting Genitourinary: Denies: Dysuria Musculoskeletal: Denies: Joint Pain, Joint Tenderness Skin: Denies: Rash, Wounds Neurological: Denies: Numbness, Tingling, Focal weakness Psychiatric: Denies: Anxiety, Depression, Homicidal Ideations, Suicidal Ideations Hematologic/ Lymphatic: Denies: Easy Bruising, Easy Bleeding - Physical Exam General: Alert, Oriented x3, Cooperative HEENT: Atraumatic, PERRLA, EOMI, Normocephalic Neck: Supple, No JVD, Negative Carotid Bruits Lungs: Clear to auscultation, Normal air movement Cardiovascular: Regular rate, No murmurs Abdomen: Bowel Sounds Present, Soft, Non Tender Skin: No rashes, No breakdown Musculoskeletal: No Tenderness to Palpation of Joints or Extremities Neurological: Cranial nerves II-XII grossly intact Psych/Mental Status: Normal Affect, Appropriate Oxygen Delivery Method Room Air Weight: 97.522 kg Body Mass Index (BMI) 25.4 Laboratory Tests Past 24 Hrs 02/10/18 14:55 S.aureus Protein A PCR Pending MRSA (PCR) Pending Assessment/Plan All Active Problems Ulcer of right lower extremity with fat layer exposed (Acute) Ulcer of left lower extremity with fat layer exposed (Acute) Pressure ulcer, heel, left, unstageable (Acute) Diabetic ulcer of left foot (Acute) BKA stump complication (Acute) Charcot ankle (Acute) Cellulitis of left leg (Resolved) ESRD. HD tomorrow as per schedule. no labs yet. Anemia of chronic renal disease. will get ROSA dosing from outpatient unit RLE wound ID consulted
--- NOTE | 2018-02-10 16:52 | CON.PCM_ITS ---
Problem List (1) ESRD (end stage renal disease) Status: Chronic Consultation - Renal 02/10/18 PCP/ Referring MD: Requesting physician: Dr Michael Primary care physician: Silke Orozco Reason for Consultation:: ESRD - History of Present Illness History of Present Illness: The patient is a 68 year old M admitted to hospital today for non healing ulcer of right BKA stump apparently was recently at [facility] with similar issues. renal consulted for dialysis needs started dialysis about 5 weeks ago. had CKD prior to that. Access is RIJ TDC goes to [facility]. MWF schedule currently denies any complaints - Allergies Allergies: Allergies atorvastatin calcium [From Lipitor] Adverse Reaction (Verified 07/30/15 16:32) SEVERE LEG CRAMPS - Current Medications Current Medications: Current Medications Acetaminophen (Tylenol) 650 mg PO Q6H PRN PRN PRN Reason: PAIN Aspirin (Aspirin, Baby) 81 mg PO DAILY@0800 ABIGAIL Bethanechol Chloride (Urecholine) 10 mg PO TID ABIGAIL Ergocalciferol (Vitamin D) 50,000 unit PO QWEEK ABIGAIL Ferrous Sulfate (Ferrous Sulfate) 325 mg PO BIDCM ABIGAIL Finasteride (Proscar) 5 mg PO DAILY [facility] Insulin Human Lispro (Humalog Kwikpen (Bkc)) 0 unit SC ACHS ABIGAIL PRN Reason: Protocol Levothyroxine Sodium (Synthroid) 175 mcg PO DAILY ABIGAIL Non-Formulary Medication (Amiodarone Hcl [Pacerone]) 200 mg PO DAILY [facility] Non-Formulary Medication (B Complx/C/Folic/Zinc/Copper/E [Eql Stress B-Complex Tablet]) 1 tablet PO DAILY [facility] Non-Formulary Medication (Midodrine Hcl [Midodrine Hcl]) 10 mg PO TID ABIGAIL Non-Formulary Medication (Vancomycin 125mg/5ml Susp) 125 mg PO DAILY [facility] Nutritional Formula (Nepro Carb Steady) 120 ml PO 4X/DAY ABIGAIL Nystatin (Mycostatin Powder) 1 applic TOPICAL TID ABIGAIL PRN Reason: Protocol Oxycodone HCl (Oxyir) 5 mg PO Q6H PRN PRN PRN Reason: SEVERE PAIN (6-10/10) Senna (Senokot) 1 tablet PO BID ABIGAIL - Past Medical History Past Medical History (Chronic Problems): Chronic Problems Peripheral arterial disease (Chronic) S/P BKA (below knee amputation) unilateral (Chronic) Charcot foot due to diabetes mellitus (Chronic) Atrial fibrillation (Chronic) Hypothyroid (Chronic) ESRD (end stage renal disease) (Chronic) Open wound of plantar aspect of foot (Chronic) Orthostatic hypotension dysautonomic syndrome (Chronic) CKD (chronic kidney disease), stage III (Chronic) CAD (coronary artery disease) (Chronic) s/p cabg x 3 2010 5 stents last 2006 MRSA bacteremia (Chronic) Diabetic foot infection (Chronic) Diabetes (Chronic) - Past Surgical History Surgical History: - - RLE stent, BL LE angioplasty, cardiac stents, cardiac catheterizations, CABG x 3, toe amputation. - Social History Smoking Status: Never smoker - Family History Maternal History Items: No pertinent history Review of Systems Constitutional: Denies: Chills, Fever, Weight Change HEENT: Denies: Head Aches, Sinus Congestion, Sinus Drainage Cardiovascular: Denies: Chest Pain, Palpitations Respiratory: Denies: Cough, Shortness of breath at rest, Sputum production Gastrointestinal: Denies: Abdominal Pain, Nausea, Vomiting Genitourinary: Denies: Dysuria Musculoskeletal: Denies: Joint Pain, Joint Tenderness Skin: Denies: Rash, Wounds Neurological: Denies: Numbness, Tingling, Focal weakness Psychiatric: Denies: Anxiety, Depression, Homicidal Ideations, Suicidal Ideations Hematologic/ Lymphatic: Denies: Easy Bruising, Easy Bleeding - Physical Exam General: Alert, Oriented x3, Cooperative HEENT: Atraumatic, PERRLA, EOMI, Normocephalic Neck: Supple, No JVD, Negative Carotid Bruits Lungs: Clear to auscultation, Normal air movement Cardiovascular: Regular rate, No murmurs Abdomen: Bowel Sounds Present, Soft, Non Tender Skin: No rashes, No breakdown Musculoskeletal: No Tenderness to Palpation of Joints or Extremities Neurological: Cranial nerves II-XII grossly intact Psych/Mental Status: Normal Affect, Appropriate Oxygen Delivery Method Room Air Weight: 97.522 kg Body Mass Index (BMI) 25.4 Laboratory Tests Past 24 Hrs 02/10/18 14:55 S.aureus Protein A PCR Pending MRSA (PCR) Pending Assessment/Plan All Active Problems Ulcer of right lower extremity with fat layer exposed (Acute) Ulcer of left lower extremity with fat layer exposed (Acute) Pressure ulcer, heel, left, unstageable (Acute) Diabetic ulcer of left foot (Acute) BKA stump complication (Acute) Charcot ankle (Acute) Cellulitis of left leg (Resolved) ESRD. HD tomorrow as per schedule. no labs yet. Anemia of chronic renal disease. will get ROSA dosing from outpatient unit RLE wound ID consulted
[2018-02-10 17:06] LABS: Absolute Lymphocyte Count 1.08 X10^3/ul (0.83-4.51); Absolute Neutrophil Count 4.6 X10^3/uL (2.0-7.7); Basophil# 0.02 X10^3/uL; Basophil% 0.3 % (0-1); Eosinophil# 0.08 X10^3/uL; Eosinophils% 1.2 % (0-5); Hematocrit 30.3 % (40-54); Lymphocyte # 1.08 X10^3/ul (4.0); Lymphocyte % 15.8 % (19-41); Mean Corp Hgb Conc 29.7 g/gl (32-36); Mean Corpuscular Hgb 27.2 pg (27.0-32.0); Mean Corpuscular Volume 91.5 fL (80-94); Mean Platelet Vol. 8.7 fl (6.2-12.0); Monocyte# 1.03 X10^3/uL; Neutrophil # 4.62 X10^3/uL (2.7-7.7); Neutrophil % 67.4 % (47-70); POSITIVE COUNT NO; POSITIVE DIFFERENTIAL NO; POSITIVE MORPHOLOGY NO; Platelet Count 138 K/mm3 (150-450); RBC Distribution Width CV 18.9 % (11.6-14.6); RBC Distribution Width SD 62.9 fl (35.1-43.9); Red Blood Count 3.31 M/mm3 (4.6-6.2); White Blood Count 6.9 K/mm3 (4.4-11.0)
[2018-02-10 17:15] LABS: Anion Gap 9 (5-15); BUN 27 mg/dL (7-18); BUN/Creat Ratio 10.2 RATIO (10-20); Calcium,Total 8.3 mg/dL (8.5-10.1); Chloride 101 mmol/L (98-107); Creatinine, Serum 2.65 mg/dL (0.70-1.30); EST Glomerular Filtration Rate 26 mL/min (>60); Est Glom Filt Rate - Afr Amer 31 mL/min (>60); Estimated Creatinine Clearance 33.16 ml/min; Glucose 120 mg/dL (74-106); Potassium 4.2 mmol/L (3.5-5.1); Sodium Level 136 mmol/L (136-145)
[2018-02-10 17:16] LABS: Bedside Glucose 99 mg/dL (70-110)
[2018-02-10] MEDS: Ferrous Sulfate 325 MG Tablet PO (17:49)
--- NOTE | 2018-02-10 18:05 | NURSING ---
Call placed to Dr. Lebron Green Physican credit collections analyst with [employer], was informed of consult for pt, Mr Rice states he does not do amputation pts, he called and talked with Dr toney whom also said he would not preform surgery on this pt, and suggested that if surgery was needed he need to be seen by physican whom originally performed the operation. Notified Katya Charge nurse and Also .
[2018-02-10 19:36] LABS: M R Staph aureus DNA By PCR Negative (Negative); Probe Check PASS; Specimen Processing Control PASS; Staph aureus DNA By PCR NEGATIVE (Negative)
--- NOTE | 2018-02-10 20:16 | DT_ITS ---
This patient was seen during an EMR downtime February 14, 2018 - February 21, 2018. This patient may have a combination of paper and electronic documentation or all paper documentation. All documentation is viewable within the e-chart portion of [facility] for each patient visit.
[2018-02-10 20:36] VITALS: BP 121/54; PULSE 55; RESP 18; TEMP 35.7; O2SAT 98
[2018-02-10 20:47] LABS: Erythrocyte Sedimentation Rate 93 mm/hr (0-20)
[2018-02-10] MEDS: BETHANECHOL CHLORIDE 25 MG TABLET 12.5 MG PO (20:51)
[2018-02-10] MEDS: Senna Tablet 1 TABLET PO (20:52)
[2018-02-10] MEDS: Nepro Liquid 120 ML LIQUID PO (20:52)
[2018-02-10] MEDS: Nystatin Powder 15gm Bottle 1 APPLIC TOPICAL (20:52)
[2018-02-10 21:11] LABS: Bedside Glucose 121 mg/dL (70-110)
[2018-02-11 02:10] VITALS: BP 141/88; PULSE 60; RESP 18; TEMP 36.1; O2SAT 98
[2018-02-11] MEDS: Levothyroxine 175 MCG Tablet PO (05:49)
[2018-02-11] MEDS: BETHANECHOL CHLORIDE 25 MG TABLET 12.5 MG PO ×3 (05:49→22:54)
[2018-02-11] MEDS: Nystatin Powder 15gm Bottle 1 APPLIC TOPICAL ×2 (05:50→21:06)
--- NOTE | 2018-02-11 05:55 | ECHOD_ITS ---
Reason For Study: CHF Procedure This was a 2D Doppler, Color Flow transthoracic echocardiogram. Exam performed portable in patient room. Left Ventricle Moderately dilated left ventricle. Apical false tendon noted. The estimated ejection fraction is 40 %. Unable to assess diastolic dysfunction due to arrhythmia. There is moderate global hypokinesis of the left ventricle. Right Ventricle Severely dilated right ventricle. Mild to moderate global right ventricular systolic dysfunction. Atria The left atrium is severely enlarged. The right atrium is moderately enlarged. Normal atrial septum. Mitral Valve The mitral valve is structurally normal. No prolapse or stenosis seen. Mild (1+) mitral valve insufficiency. Tricuspid Valve Normal tricuspid valve. Moderate (2+) tricuspid valve insufficiency. Right ventricular systolic pressure estimated to be 38 mmHg. Mild pulmonary hypertension. Aortic Valve Normal aortic valve. Trisinus/trileaflet aortic valve. Pulmonic Valve Normal pulmonic valve. Great Vessels Normal aortic root. Normal arch. The inferior vena cava is dilated. No collapse of the inferior vena cava. Pericardium/Pleural No pericardial effusion. Medication Diluted definity 4ml given slow IV push to enhance endocardial definition. MMode/2D Measurements & Calculations LVIDd: 5.5 cm IVSd: 1.2 cm Ao root diam: 3.0 cm LVIDs: 4.5 cm LVPWd: 0.87 cm LA dimension: 5.1 cm RVDd: 5.2 cm FS: 19.1 % LAV(MOD-bp): 111.3 ml LAV(MOD-bp) Indexed: 48.4 ml/m2 LA A4 area: 31.6 cm2 RA A4 area: 23.0 cm2 LAV(MOD-sp2): 103.8 ml LAV(MOD-sp4): 107.3 ml Doppler Measurements & Calculations MV E max rigo: 97.0 cm/sec Lat Peak E' Rigo: 7.5 cm/sec Med Peak E' Rigo: 3.7 cm/sec E/E' lat: 13.0 E/E' med: 25.9 Ao V2 max: 98.5 cm/sec LV V1 max: 79.6 cm/sec PA V2 max: 58.2 cm/sec Ao max P.9 mmHg LV V1 max P.5 mmHg TR max rigo: 262.5 cm/sec TR max P.6 mmHg Interpretation Summary Moderately dilated left ventricle. The estimated ejection fraction is 40 %. Unable to assess diastolic dysfunction due to arrhythmia. There is moderate global hypokinesis of the left ventricle. Severely dilated right ventricle. Mild to moderate global right ventricular systolic dysfunction. The left atrium is severely enlarged. The right atrium is moderately enlarged. Mild (1+) mitral valve insufficiency. Moderate (2+) tricuspid valve insufficiency. Right ventricular systolic pressure estimated to be 38 mmHg. Mild pulmonary hypertension. Compared to SHANNAN report dated 03/25/2014, LV function has gone from 55% to 40%. The study was technically difficult. Contrast injection was performed. Ordering Physician: Nesha Michael Referring Physician: Annie Orozco Performed By: Carolee Agustin RDCS
[2018-02-11 06:21] LABS: Bedside Glucose 110 mg/dL (70-110)
[2018-02-11 07:39] LABS: Basophil# 0.02 X10^3/uL; Basophil% 0.3 % (0-1); Eosinophil# 0.08 X10^3/uL; Eosinophils% 1.3 % (0-5); Hematocrit 29.2 % (40-54); Hemoglobin 8.8 g/dl (13.0-16.5); Lymphocyte % 18.2 % (19-41); Mean Corp Hgb Conc 30.1 g/gl (32-36); Mean Corpuscular Hgb 27.6 pg (27.0-32.0); Mean Corpuscular Volume 91.5 fL (80-94); Mean Platelet Vol. 8.5 fl (6.2-12.0); Monocyte# 0.77 X10^3/uL; Monocyte% 12.7 % (0-10); Neutrophil # 4.04 X10^3/uL (2.7-7.7); Platelet Count 130 K/mm3 (150-450); RBC Distribution Width CV 18.7 % (11.6-14.6); RBC Distribution Width SD 62.3 fl (35.1-43.9); Red Blood Count 3.19 M/mm3 (4.6-6.2)
[2018-02-11 07:45] LABS: POSITIVE COUNT NO; POSITIVE DIFFERENTIAL NO; POSITIVE MORPHOLOGY NO
[2018-02-11 08:13] LABS: ALB/GLOB Ratio 0.5 RATIO (0.9-2.4); AST(SGOT) 20 U/L (15-37); Alanine Aminotransfer ALT/SGPT 20 U/L (16-61); Albumin, Serum 2.2 g/dL (3.2-5.0); Alkaline Phosphatase 388 U/L (45-117); Anion Gap 11 (5-15); BUN 33 mg/dL (7-18); BUN/Creat Ratio 10.5 RATIO (10-20); Calcium,Total 8.2 mg/dL (8.5-10.1); Chloride 103 mmol/L (98-107); Cholesterol 99 mg/dL (200); Creatinine, Serum 3.13 mg/dL (0.70-1.30); EST Glomerular Filtration Rate 21 mL/min (>60); Est Glom Filt Rate - Afr Amer 26 mL/min (>60); Estimated Creatinine Clearance 28.07 ml/min; Globulin 4.7 g/dL (2.2-4.2); Glucose 122 mg/dL (74-106); High Density Lipoprotein 32 mg/dL; Magnesium 2.4 mg/dL (1.6-2.6); Phosphorus 4.7 mg/dL (2.5-4.9); Potassium 4.3 mmol/L (3.5-5.1); Protein, Total 6.9 g/dL (6.4-8.2); Sodium Level 140 mmol/L (136-145); Triglycerides 61 mg/dL; Uric Acid 1.4 mg/dL (3.5-7.2); Very Low Density Lipoprotein 12 mg/dL (5-40)
[2018-02-11 08:15] LABS: Hemoglobin A1c 5.1 % (4.2-6.3)
[2018-02-11 09:27] VITALS: BP 110/73; PULSE 58; RESP 18; TEMP 36; O2SAT 95
[2018-02-11] MEDS: Amiodarone 200 MG Tablet PO (09:33)
[2018-02-11] MEDS: Senna Tablet 1 TABLET PO (09:34)
[2018-02-11] MEDS: Aspirin 81 MG TAB.CHEW PO (09:34)
[2018-02-11] MEDS: Ferrous Sulfate 325 MG Tablet PO ×2 (09:34→17:05)
[2018-02-11] MEDS: Finasteride 5 MG Tablet PO (09:34)
[2018-02-11] MEDS: Febuxostat 40 MG TABLET PO (09:34)
[2018-02-11] MEDS: Nepro Liquid 120 ML LIQUID PO ×3 (09:39→21:08)
--- NOTE | 2018-02-11 09:40 | CASEMGMT ---
RADHA QUACH Face to Face with patient for initial transition planning/care coordination assessment. RADHA QAUCH introduced self and role at [facility]. Patient lying in bed, alert and oriented. Patient willing to participate in assessment and is able to answer all questions appropriately. Care providers, pharmacy, and demographics verified. See link attached. Patient wishes to return to SNF [facility] at discharge. Pt states he has no further needs or concerns at this time. RADHA QUACH updated ERVIN Hamilton regarding return to SNF at discharge. Disposition Plan: Patient to return to SNF, [facility] at discharge.
--- NOTE | 2018-02-11 10:36 | CASEMGMT ---
Social Work Note RN PHILOMENA Rosado updated this worker that pt is from [facility] and that his plan is to return there at discharge. ERVIN called [facility] and spoke with Reba in admissions. ERVIN updated Reba on pt's hospital admission and that pt plans to return to [facility] at discharge. ERVIN informed Reba that pt will be at [facility] through the weekend. Per Reba pt will need pre-cert to return to [facility]. This worker faxed available clinicals to Reba at [facility]. ERVIN will continue to follow along to assist with discharge planning. Plan: [facility] pending pre-cert Angie Hamilton ADMITTING INTERVIEWER, POT FILLER
[2018-02-11 11:31] LABS: Bedside Glucose 139 mg/dL (70-110)
--- NOTE | 2018-02-11 11:52 | CON.PCM_ITS ---
Problem List (1) Osteomyelitis Status: Acute Reason for Consult: osteo Consulted by: Dr. Michael History of Present Illness: The patient is a 68 year old M with PAD, ESRD, and DM who presented yesterday from wound care clinic due to infected ulcers with MDR organisms. He was recently discharged from [facility] in [place] about 2-3 weeks ago. Had R BKA in October. Course complicated by CHRIS on CKD requiring starting HD via permacath and cdiff. Has been on po vanc, no diarrhea. No fever, no new redness/ drainage from leg wounds. L heel with dark eschar. Seen in wound care 02/03 as a new patient, cxs sent, and BLE (+) for pseudomonas and MDR Acinetobacter. Admission to the hospital was recommended. Feeling ok this AM, HD planned for today. Full ROS performed and neg except as noted above. - Medical History Past Medical History (Chronic Problems): Chronic Problems Peripheral arterial disease (Chronic) S/P BKA (below knee amputation) unilateral (Chronic) Charcot foot due to diabetes mellitus (Chronic) Atrial fibrillation (Chronic) Hypothyroid (Chronic) ESRD (end stage renal disease) (Chronic) Open wound of plantar aspect of foot (Chronic) Orthostatic hypotension dysautonomic syndrome (Chronic) CKD (chronic kidney disease), stage III (Chronic) CAD (coronary artery disease) (Chronic) s/p cabg x 3 2010 5 stents last 2006 MRSA bacteremia (Chronic) Diabetic foot infection (Chronic) Diabetes (Chronic) Allergies/Adverse Reactions: Allergies atorvastatin calcium [From Lipitor] Adverse Reaction (Verified 07/30/15 16:32) SEVERE LEG CRAMPS Home Medications: Ambulatory Orders Medication Instructions Recorded Amiodarone HCl [Pacerone] 200 mg PO DAILY 08/02/13 Aspirin [Aspirin, Baby] 81 mg PO DAILY@0800 08/02/13 Finasteride [Proscar] 5 mg PO DAILY 08/02/13 Levothyroxine [Synthroid] 175 mcg PO DAILY 08/02/13 Acetaminophen [Tylenol] 650 mg PO Q4H PRN PRN 02/10/18 B Complx/C/Folic/Zinc/Copper/E 1 tablet PO DAILY 02/10/18 [Eql Stress B-Complex Tablet] Bethanechol Chloride 10 mg PO TID 02/10/18 Collagenase [Santyl] 250 units TOPICAL DAILY 02/10/18 Ergocalciferol [Vitamin D] 50,000 units PO QWEEK 02/10/18 Febuxostat [Uloric] 40 mg PO DAILY 02/10/18 Ferrous Sulfate 325 mg PO BIDCM 02/10/18 Insulin Lispro [Humalog] See Protocol SQ ACHS 02/10/18 Midodrine HCl 10 mg PO TID 02/10/18 Mupirocin [Bactroban] 1 applic TOPICAL DAILY 02/10/18 Nitroglycerin 0.4 mg SL PRN 02/10/18 Oxycodone HCl [Roxicodone] 5 mg PO Q8H PRN PRN 02/10/18 Senna [Senokot] 1 tablet PO BID 02/10/18 Vancomycin 125mg/5mL Susp 125 mg PO DAILY 02/10/18 - Social History Tobacco Use: non-smoker Vital Signs Temp Pulse Resp BP Pulse Ox 96.8 F L 58 L 18 110/73 95 02/11/18 09:27 02/11/18 09:27 02/11/18 09:27 02/11/18 09:27 02/11/18 09:27 Oxygen Delivery Method Room Air Weight: 97.9 kg Body Mass Index (BMI) 25.4 Laboratory Tests Past 24 Hrs 02/10/18 02/10/18 02/10/18 14:55 15:50 15:50 WBC 6.9 RBC 3.31 L Hgb 9.0 L Hct 30.3 L MCV 91.5 MCH 27.2 MCHC 29.7 L RDW 18.9 H RDW Differential 62.9 H Plt Count 138 L MPV 8.7 Immature Gran % (Auto) 0.300 Neut % (Auto) 67.4 Lymph % (Auto) 15.8 L [place] % (Auto) 15.0 H Eos % (Auto) 1.2 Baso % (Auto) 0.3 Absolute Neuts (auto) 4.6 Absolute Lymphs (auto) 1.08 Total Counted Not Reportable ESR Sodium 136 Potassium 4.2 Chloride 101 Carbon Dioxide 26.0 Anion Gap 9 BUN 27 H Creatinine 2.65 H Estim Creat Clear Calc 33.16 Est GFR (MDRD) Af Amer 31 L Est GFR (MDRD) Non-Af 26 L BUN/Creatinine Ratio 10.2 Glucose 120 H Hemoglobin A1c Uric Acid Calcium 8.3 L Phosphorus Magnesium Total Bilirubin AST ALT Alkaline Phosphatase C-React Prot High Sens Total Protein Albumin Globulin Albumin/Globulin Ratio Triglycerides Cholesterol LDL Cholesterol VLDL Cholesterol HDL Cholesterol S.aureus Protein A PCR NEGATIVE MRSA (PCR) Negative 02/10/18 02/10/18 02/11/18 15:50 15:50 06:43 WBC 6.0 RBC 3.19 L Hgb 8.8 L Hct 29.2 L MCV 91.5 MCH 27.6 MCHC 30.1 L RDW 18.7 H RDW Differential 62.3 H Plt Count 130 L MPV 8.5 Immature Gran % (Auto) 0.500 Neut % (Auto) 67.0 Lymph % (Auto) 18.2 L [place] % (Auto) 12.7 H Eos % (Auto) 1.3 Baso % (Auto) 0.3 Absolute Neuts (auto) 4.0 Absolute Lymphs (auto) 1.10 Total Counted Not Reportable ESR 93 H Sodium Potassium Chloride Carbon Dioxide Anion Gap BUN Creatinine Estim Creat Clear Calc Est GFR (MDRD) Af Amer Est GFR (MDRD) Non-Af BUN/Creatinine Ratio Glucose Hemoglobin A1c Uric Acid Calcium Phosphorus Magnesium Total Bilirubin AST ALT Alkaline Phosphatase C-React Prot High Sens 58.30 H Total Protein Albumin Globulin Albumin/Globulin Ratio Triglycerides Cholesterol LDL Cholesterol VLDL Cholesterol HDL Cholesterol S.aureus Protein A PCR MRSA (PCR) 02/11/18 02/11/18 06:43 06:43 WBC RBC Hgb Hct MCV MCH MCHC RDW RDW Differential Plt Count MPV Immature Gran % (Auto) Neut % (Auto) Lymph % (Auto) [place] % (Auto) Eos % (Auto) Baso % (Auto) Absolute Neuts (auto) Absolute Lymphs (auto) Total Counted ESR Sodium 140 Potassium 4.3 Chloride 103 Carbon Dioxide 26.0 Anion Gap 11 BUN 33 H Creatinine 3.13 H Estim Creat Clear Calc 28.07 Est GFR (MDRD) Af Amer 26 L Est GFR (MDRD) Non-Af 21 L BUN/Creatinine Ratio 10.5 Glucose 122 H Hemoglobin A1c 5.1 Uric Acid 1.4 L Calcium 8.2 L Phosphorus 4.7 Magnesium 2.4 Total Bilirubin 1.00 AST 20 ALT 20 Alkaline Phosphatase 388 H C-React Prot High Sens Total Protein 6.9 Albumin 2.2 L Globulin 4.7 H Albumin/Globulin Ratio 0.5 L Triglycerides 61 Cholesterol 99 LDL Cholesterol 55 VLDL Cholesterol 12 HDL Cholesterol 32 L S.aureus Protein A PCR MRSA (PCR) - Other Studies Radiology: [] reviewed Other Studies: [] Route of nutrition/ use of supplements: [] Nutritional Intake: [] IV Site: [] Shah Catheter: [] - Physical Exam General: Alert, Oriented x3, Cooperative, No apparent distress HEENT: Atraumatic, PERRLA, EOMI Neck: Supple, No Nodes Lungs: Clear to auscultation, Normal air movement Cardiovascular: Regular rate, Regular Rhythm Abdomen: Soft, Non Tender, Non-Distended Extremities: No edema, Diminished Peripheral Pulses Skin: Ulcer/ Wound - reviewed photos of BLE. IV Site: - - permacath without redness Musculoskeletal: No Tenderness to Palpation of Joints or Extremities Neurological: Cranial nerves II-XII grossly intact - Assessment/Plan Antibiotics: [] Assessment/Plan: [] BLE osteomyelitis seen on MRI with surface cxs (+) for pseudomonas and MDR Acinetobacter - ortho, podiatry, and plastics to see. Holding off on empiric abx while cx data and work-up pending. Micro lab is seeing if additional susceptibility testing can be sent out on cxs from last week. If condition worsens, would start empiric iv colistin, cefepime, and minocycline. Staph aureus pcr neg. ESR elevated at 97. Awaiting further records from [facility] and [facility]. ESRD - neph following cdiff diarrhea - on po vanc, no current diarrhea Thank you, will follow, d/w primary team.
--- NOTE | 2018-02-11 12:40 | PCM.PN.REN ---
Patient Problems: Active and Suspected Problems Osteomyelitis (Acute) Subjective: following for ESRD. Pt denies current diarrhea. No SOB or CP. Complains of fatigue. No edema of LLE. - Physical Exam General: Alert, Oriented x3 HEENT: Atraumatic Oral: Moist Mucosa Neck: Supple Lungs: Clear to auscultation Cardiovascular: Normal S1, Normal S2 Abdomen: Bowel Sounds Present, Soft, Non Tender Extremities: - - s/p R AKA, LLE in bandage. Trace edema. Vital Signs Temp Pulse Resp BP Pulse Ox 96.8 F L 58 L 18 110/73 95 02/11/18 09:27 02/11/18 09:27 02/11/18 09:27 02/11/18 09:27 02/11/18 09:27 Oxygen Delivery Method Room Air Weight: 97.9 kg Body Mass Index (BMI) 25.4 Intake and Output for Last 24 Hours 02/09/18 02/10/18 02/11/18 23:59 23:59 23:59 Intake Total 120 / 120 300 / 300 Output Total 200 / 200 Balance 120 / 120 100 / 100 Microbiology Past 72 Hours 02/10/18 14:55 Wound Culture - Preliminary Wound Drainage - Aerobic & Anaerobic Swabs Gram negative sierra Laboratory Tests Past 24 Hrs 02/10/18 02/10/18 02/10/18 14:55 15:50 15:50 WBC 6.9 RBC 3.31 L Hgb 9.0 L Hct 30.3 L MCV 91.5 MCH 27.2 MCHC 29.7 L RDW 18.9 H RDW Differential 62.9 H Plt Count 138 L MPV 8.7 Immature Gran % (Auto) 0.300 Neut % (Auto) 67.4 Lymph % (Auto) 15.8 L [place] % (Auto) 15.0 H Eos % (Auto) 1.2 Baso % (Auto) 0.3 Absolute Neuts (auto) 4.6 Absolute Lymphs (auto) 1.08 Total Counted Not Reportable ESR Sodium 136 Potassium 4.2 Chloride 101 Carbon Dioxide 26.0 Anion Gap 9 BUN 27 H Creatinine 2.65 H Estim Creat Clear Calc 33.16 Est GFR (MDRD) Af Amer 31 L Est GFR (MDRD) Non-Af 26 L BUN/Creatinine Ratio 10.2 Glucose 120 H Hemoglobin A1c Uric Acid Calcium 8.3 L Phosphorus Magnesium Total Bilirubin AST ALT Alkaline Phosphatase C-React Prot High Sens Total Protein Albumin Globulin Albumin/Globulin Ratio Triglycerides Cholesterol LDL Cholesterol VLDL Cholesterol HDL Cholesterol S.aureus Protein A PCR NEGATIVE MRSA (PCR) Negative 02/10/18 02/10/18 02/11/18 15:50 15:50 06:43 WBC 6.0 RBC 3.19 L Hgb 8.8 L Hct 29.2 L MCV 91.5 MCH 27.6 MCHC 30.1 L RDW 18.7 H RDW Differential 62.3 H Plt Count 130 L MPV 8.5 Immature Gran % (Auto) 0.500 Neut % (Auto) 67.0 Lymph % (Auto) 18.2 L [place] % (Auto) 12.7 H Eos % (Auto) 1.3 Baso % (Auto) 0.3 Absolute Neuts (auto) 4.0 Absolute Lymphs (auto) 1.10 Total Counted Not Reportable ESR 93 H Sodium Potassium Chloride Carbon Dioxide Anion Gap BUN Creatinine Estim Creat Clear Calc Est GFR (MDRD) Af Amer Est GFR (MDRD) Non-Af BUN/Creatinine Ratio Glucose Hemoglobin A1c Uric Acid Calcium Phosphorus Magnesium Total Bilirubin AST ALT Alkaline Phosphatase C-React Prot High Sens 58.30 H Total Protein Albumin Globulin Albumin/Globulin Ratio Triglycerides Cholesterol LDL Cholesterol VLDL Cholesterol HDL Cholesterol S.aureus Protein A PCR MRSA (PCR) 02/11/18 02/11/18 06:43 06:43 WBC RBC Hgb Hct MCV MCH MCHC RDW RDW Differential Plt Count MPV Immature Gran % (Auto) Neut % (Auto) Lymph % (Auto) [place] % (Auto) Eos % (Auto) Baso % (Auto) Absolute Neuts (auto) Absolute Lymphs (auto) Total Counted ESR Sodium 140 Potassium 4.3 Chloride 103 Carbon Dioxide 26.0 Anion Gap 11 BUN 33 H Creatinine 3.13 H Estim Creat Clear Calc 28.07 Est GFR (MDRD) Af Amer 26 L Est GFR (MDRD) Non-Af 21 L BUN/Creatinine Ratio 10.5 Glucose 122 H Hemoglobin A1c 5.1 Uric Acid 1.4 L Calcium 8.2 L Phosphorus 4.7 Magnesium 2.4 Total Bilirubin 1.00 AST 20 ALT 20 Alkaline Phosphatase 388 H C-React Prot High Sens Total Protein 6.9 Albumin 2.2 L Globulin 4.7 H Albumin/Globulin Ratio 0.5 L Triglycerides 61 Cholesterol 99 LDL Cholesterol 55 VLDL Cholesterol 12 HDL Cholesterol 32 L S.aureus Protein A PCR MRSA (PCR) POC Glucose 02/11/18 02/11/18 02/10/18 11:24 06:12 20:50 POC Glucose 139 H 110 121 H 02/10/18 17:08 POC Glucose 99 Medical Necessity - Tobacco Use Smoking Status: Never smoker Assessment/Plan All Active Problems Ulcer of right lower extremity with fat layer exposed (Acute) Ulcer of left lower extremity with fat layer exposed (Acute) Pressure ulcer, heel, left, unstageable (Acute) 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 ESRD. HD MWF. Outpt unit-[facility]. Continue HD on usual schedule. Will dialyze later today. 2. Anemia. ROSA with HD. Continue iron. 3. CKD-MBD. Not on phos binder (no need, phos was 4.7). Will monitor ca/phos periodically. Check PTH at [facility] center. 4. C.diff. No diarrhea. Pt is on oral vancomycin. ID following. 5. BLE OM. Antibiotic as per ID.
--- NOTE | 2018-02-11 13:37 | CON.PCM_ITS ---
Reason for Consult Date of Consultation: 02/11/18 Reason for Consultation: Nonhealing ulcer right BKA stump. REFERRING PHYSICIAN : Dr. Michael. INTEGRITY ASSESSOR: Dr. Rivera. History of Present Illness: The patient is a 68 year old M with a nonhealing ulcer right BKA stump as well as a Charcot arthropathy left foot. He has a history of osteomyelitis and MRSA. His right BKA was done in October in [place]. He also has diabetes and ESRD and PAD. He was [facility] for more aggressive wound care and IV antibiotic therapy because of recent wound cultures that showed Pseudomonas aeroginosa and MDR Acinetobacter baumanii. His initial WBC was 6.9. His HgbA1c was 5.1. His ESR was 93. He had MRI done both LE which were suspicious for osteomyelitis. I was asked to evaluate his nonhealing ulcer right BKA stump for surgical options for treatment. Podiatry is involved in managing his Charcot arthropathy left foot. Past Medical History Past Medical History (Chronic Problems): Chronic Problems Ulceration of below knee amputation stump (Chronic) nonhealing ulcer right BKA stump Peripheral arterial disease (Chronic) S/P BKA (below knee amputation) unilateral (Chronic) Charcot foot due to diabetes mellitus (Chronic) Atrial fibrillation (Chronic) Hypothyroid (Chronic) ESRD (end stage renal disease) (Chronic) Open wound of plantar aspect of foot (Chronic) Orthostatic hypotension dysautonomic syndrome (Chronic) CKD (chronic kidney disease), stage III (Chronic) CAD (coronary artery disease) (Chronic) s/p cabg x 3 2010 5 stents last 2006 MRSA bacteremia (Chronic) Diabetic foot infection (Chronic) Diabetes (Chronic) Allergies atorvastatin calcium [From Lipitor] Adverse Reaction (Verified 07/30/15 16:32) SEVERE LEG CRAMPS Current Medications Acetaminophen (Tylenol) 650 mg PO Q6H PRN Amiodarone HCl (Cordarone) 200 mg PO DAILY ABIGAIL Aspirin (Aspirin, Baby) 81 mg PO DAILY@0800 ABIGAIL Bethanechol Chloride (Bethanechol Chloride) 12.5 mg PO TID ABIGAIL Ergocalciferol (Vitamin D) 50,000 unit PO QWEEK ABIGAIL Ferrous Sulfate (Ferrous Sulfate) 325 mg PO BIDCM ABIGAIL Finasteride (Proscar) 5 mg PO DAILY ABIGAIL Sodium Chloride () 250 mls @ 15 mls/hr IV .[id number] PRN Insulin Human Lispro (Humalog Kwikpen (Bkc)) 0 unit SC ACHS ABIGAIL Levothyroxine Sodium (Synthroid) 175 mcg PO DAILY@0600 ABIGAIL Midodrine (Proamatine) 10 mg PO X1 ONE Nutritional Formula (Nepro Carb Steady) 120 ml PO 4X/DAY ABIGAIL Nystatin (Mycostatin Powder) 1 applic TOPICAL TID ABIGAIL Oxycodone HCl (Oxyir) 5 mg PO Q6H PRN Senna (Senokot) 1 tablet PO BID ABIGAIL Vancomycin HCl (Vancomycin 125mg/5ml Susp) 125 mg PO DAILY ABIGAIL PAST MEDICAL HISTORY Diabetes mellitus. PAD. ESRD on dialysis. Osteomyelitis. MRSA. Charcot arthropathy left foot. Thyroid disease. CAD. Home Medications: Ambulatory Orders Medication Instructions Recorded Amiodarone HCl [Pacerone] 200 mg PO DAILY 08/02/13 Aspirin [Aspirin, Baby] 81 mg PO DAILY@0800 08/02/13 Finasteride [Proscar] 5 mg PO DAILY 08/02/13 Levothyroxine [Synthroid] 175 mcg PO DAILY 08/02/13 Acetaminophen [Tylenol] 650 mg PO Q4H PRN PRN 02/10/18 B Complx/C/Folic/Zinc/Copper/E 1 tablet PO DAILY 02/10/18 [Eql Stress B-Complex Tablet] Bethanechol Chloride 10 mg PO TID 02/10/18 Collagenase [Santyl] 250 units TOPICAL DAILY 02/10/18 Ergocalciferol [Vitamin D] 50,000 units PO QWEEK 02/10/18 Febuxostat [Uloric] 40 mg PO DAILY 02/10/18 Ferrous Sulfate 325 mg PO BIDCM 02/10/18 Insulin Lispro [Humalog] See Protocol SQ ACHS 02/10/18 Midodrine HCl 10 mg PO TID 02/10/18 Mupirocin [Bactroban] 1 applic TOPICAL DAILY 02/10/18 Nitroglycerin 0.4 mg SL PRN 02/10/18 Oxycodone HCl [Roxicodone] 5 mg PO Q8H PRN PRN 02/10/18 Senna [Senokot] 1 tablet PO BID 02/10/18 Vancomycin 125mg/5mL Susp 125 mg PO DAILY 02/10/18 Surgical History: - - RLE stent, BL LE angioplasty, cardiac stents, cardiac catheterizations, CABG x 3, toe amputation. Right BKA. Lives: Skilled Nursing Smoking Status: Never smoker Alcohol: None Drugs: None - *Family History Maternal History Items: No pertinent history Review of Systems Comment: Constitutional: Denies: Chills, Fever, Weight Change. HEENT: Denies: Head Aches, Sinus Congestion, Sinus Drainage. Cardiovascular: Denies: Chest Pain, Palpitations. Respiratory: Denies: Cough, Shortness of breath at rest, Sputum production. Gastrointestinal: Denies: Abdominal Pain, Nausea, Vomiting. Genitourinary: Denies: Dysuria. Musculoskeletal: Reports: - - nonhealing wounds as above. Denies: Joint Pain, Joint Tenderness. Skin: Denies: Rash, Wounds. Neurological: Denies: Numbness, Tingling, Focal weakness. Psychiatric : Denies: Anxiety, Depression, Homicidal Ideations, Suicidal Ideations. Hematologic/ Lymphatic: Denies: Easy Bruising, Easy Bleeding Patient Problems: Active and Suspected Problems Osteomyelitis (Acute) - Physical Exam General: Alert, Oriented x3, Cooperative HEENT: PERRLA, EOMI. Neck: Supple, Nontender. No cervical adenopathy. Lungs: Clear to auscultation. Cardiovascular: Regular rate. Abdomen: Soft, Nondistended. Extremities: right BKA stump has nonhealing ulcer anteriorly that measures 2.3 x 2 x 0.4 cm. Has some exudate. No exposed bone. No purulent drainage. Has dry scabbing on his right BKA stump, proximal and lateral. Proximal measures 4.8 x 2.2 cm. Lateral measures 1.2 x 0.8 cm. No drainage. No evidence of infection at this point. Has Charcot arthropathy left foot with necrotic eschar left heel. Musculoskeletal: No Tenderness. Neurological: Cranial nerves II-XII grossly intact Psych/Mental Status: Normal Affect, Appropriate, Alert and oriented to time, place, person, mood and affect Vital Signs Temp Pulse Resp BP Pulse Ox 96.8 F L 58 L 18 110/73 95 02/11/18 09:27 02/11/18 09:27 02/11/18 09:27 02/11/18 09:27 02/11/18 09:27 Oxygen Delivery Method Room Air Weight: 215 lb 13.321 oz Body Mass Index (BMI) 25.4 Intake and Output for Last 24 Hours 02/09/18 02/10/18 02/11/18 23:59 23:59 23:59 Intake Total 120 / 120 300 / 300 Output Total 200 / 200 Balance 120 / 120 100 / 100 Microbiology Past 72 Hours 02/10/18 14:55 Wound Culture - Preliminary Wound Drainage - Aerobic & Anaerobic Swabs Gram negative sierra Laboratory Tests Past 24 Hrs 02/10/18 02/10/18 02/10/18 14:55 15:50 15:50 WBC 6.9 RBC 3.31 L Hgb 9.0 L Hct 30.3 L MCV 91.5 MCH 27.2 MCHC 29.7 L RDW 18.9 H RDW Differential 62.9 H Plt Count 138 L MPV 8.7 Immature Gran % (Auto) 0.300 Neut % (Auto) 67.4 Lymph % (Auto) 15.8 L [place] % (Auto) 15.0 H Eos % (Auto) 1.2 Baso % (Auto) 0.3 Absolute Neuts (auto) 4.6 Absolute Lymphs (auto) 1.08 Total Counted Not Reportable ESR Sodium 136 Potassium 4.2 Chloride 101 Carbon Dioxide 26.0 Anion Gap 9 BUN 27 H Creatinine 2.65 H Estim Creat Clear Calc 33.16 Est GFR (MDRD) Af Amer 31 L Est GFR (MDRD) Non-Af 26 L BUN/Creatinine Ratio 10.2 Glucose 120 H Hemoglobin A1c Uric Acid Calcium 8.3 L Phosphorus Magnesium Total Bilirubin AST ALT Alkaline Phosphatase C-React Prot High Sens Total Protein Albumin Globulin Albumin/Globulin Ratio Triglycerides Cholesterol LDL Cholesterol VLDL Cholesterol HDL Cholesterol S.aureus Protein A PCR NEGATIVE MRSA (PCR) Negative 02/10/18 02/10/18 02/11/18 15:50 15:50 06:43 WBC 6.0 RBC 3.19 L Hgb 8.8 L Hct 29.2 L MCV 91.5 MCH 27.6 MCHC 30.1 L RDW 18.7 H RDW Differential 62.3 H Plt Count 130 L MPV 8.5 Immature Gran % (Auto) 0.500 Neut % (Auto) 67.0 Lymph % (Auto) 18.2 L [place] % (Auto) 12.7 H Eos % (Auto) 1.3 Baso % (Auto) 0.3 Absolute Neuts (auto) 4.0 Absolute Lymphs (auto) 1.10 Total Counted Not Reportable ESR 93 H Sodium Potassium Chloride Carbon Dioxide Anion Gap BUN Creatinine Estim Creat Clear Calc Est GFR (MDRD) Af Amer Est GFR (MDRD) Non-Af BUN/Creatinine Ratio Glucose Hemoglobin A1c Uric Acid Calcium Phosphorus Magnesium Total Bilirubin AST ALT Alkaline Phosphatase C-React Prot High Sens 58.30 H Total Protein Albumin Globulin Albumin/Globulin Ratio Triglycerides Cholesterol LDL Cholesterol VLDL Cholesterol HDL Cholesterol S.aureus Protein A PCR MRSA (PCR) 02/11/18 02/11/18 06:43 06:43 WBC RBC Hgb Hct MCV MCH MCHC RDW RDW Differential Plt Count MPV Immature Gran % (Auto) Neut % (Auto) Lymph % (Auto) [place] % (Auto) Eos % (Auto) Baso % (Auto) Absolute Neuts (auto) Absolute Lymphs (auto) Total Counted ESR Sodium 140 Potassium 4.3 Chloride 103 Carbon Dioxide 26.0 Anion Gap 11 BUN 33 H Creatinine 3.13 H Estim Creat Clear Calc 28.07 Est GFR (MDRD) Af Amer 26 L Est GFR (MDRD) Non-Af 21 L BUN/Creatinine Ratio 10.5 Glucose 122 H Hemoglobin A1c 5.1 Uric Acid 1.4 L Calcium 8.2 L Phosphorus 4.7 Magnesium 2.4 Total Bilirubin 1.00 AST 20 ALT 20 Alkaline Phosphatase 388 H C-React Prot High Sens Total Protein 6.9 Albumin 2.2 L Globulin 4.7 H Albumin/Globulin Ratio 0.5 L Triglycerides 61 Cholesterol 99 LDL Cholesterol 55 VLDL Cholesterol 12 HDL Cholesterol 32 L S.aureus Protein A PCR MRSA (PCR) POC Glucose 02/11/18 02/11/18 02/10/18 11:24 06:12 20:50 POC Glucose 139 H 110 121 H 02/10/18 17:08 POC Glucose 99 Diagnostic Data Lower Extremity MRI Left foot 02/10/18 16:39 IMPRESSION: Osteomyelitis of the cuboid. Advanced arthritic change consistent with Charcot arthropathy Electronically Signed: Ok Woodard MD at 23:34 EDT , Service support , LOWER EXTREMITY MRI RIGHT TIBIA/FIBULA 02/10/18 16:39 IMPRESSION: Osteomyelitis of the tibial stump. Electronically Signed: Ok Woodard MD at 23:25 EDT , Service support , Assessment/Plan All Active Problems Ulcer of right lower extremity with fat layer exposed (Acute) Ulcer of left lower extremity with fat layer exposed (Acute) Pressure ulcer, heel, left, unstageable (Acute) 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 Nonhealing ulcer right BKA stump. 2. Osteomyelitis. 3. Diabetes mellitus. 4. PAD. 5. ESRD. 6. History of MRSA. 7. History of MDR organisms. 8. Charcot arthropathy left foot. There are some scabs to the right BKA stump, proximal and lateral. There is an ulceration to the right BKA stump, anterior. Will start Dakin's dressing changes to the anterior ulcer. Will apply dry dressings to the dry scabby areas. If they open up, will apply Dakin's to these areas as well. MRI reviewed. There is suspicion for osteomyelitis in the right BKA stump and the cuboid left foot. Podiatry is managing the Charcot arthropathy left foot. She gets dialyzed three days per week, , , . She [facility] and wound cultures showed Pseudomonas and MDR Acinetobacter. ID is also involved and is holding off on antibiotics at present. Deeper cultures (from the OR) would be helpful in deciding on antibiotics since the swab cultures from the [facility] Center show organisms with no good options for treatment at this time. Anticipate increased metabolic demands from his ulcerations and infection. Will check a Prealbumin and encourage nutritional supplementation with protein to help the healing process. Recommend to the patient to proceed with operative debridement of his ulcer right BKA stump. This will include a partial ostectomy to evaluate for osteomyelitis. The goal is to leave the dry scabs alone on the proximal and lateral aspects of the stump. However, they may need operative debridement as well. Ideally would like to revise this amputation stump without having to convert to an AKA. With the suspicion for osteomyelitis, depending on how much bone needs to be removed will determine if we can salvage the BKA or if we need to convert to an AKA. Patient was informed of the risks and complications of the procedure including alternatives to surgery. These were discussed with him personally. He voices understanding and wishes to proceed. He understands that conversion to an AKA at some point may be necessary. He also understands that he may need an amputation on his left leg as well at some point. Will schedule the operative debridement early next week. Since he gets dialyzed on , , and , will try and proceed with the operative debridement on a Wednesday or . Code Visit Inpatient E&M: 45380 Init Hosp L2 - ICD-10 - T87.89, M86.9, E11.622, I73.9, N18.6, Z86.14, E11.610, Z89.519
[2018-02-11] MEDS: Midodrine HCl 5 MG Tablet 10 MG PO (13:38)
--- NOTE | 2018-02-11 13:46 | CASEMGMT ---
RADHA QUACH Face to Face with patient for initial transition planning/care coordination assessment. RDAHA QUACH introduced self and role at [facility]. Patient lying in bed, alert and oriented. Patient willing to participate in assessment and is able to answer all questions appropriately. Care providers, pharmacy, and demographics verified. See link attached. Patient wishes to return to SNF [facility] at discharge. Pt states he has no further needs or concerns at this time. RADHA QUACH updated ERVIN Hamilton regarding return to SNF at discharge. Disposition Plan: Patient to return to SNF, [facility] at discharge.
--- NOTE | 2018-02-11 13:57 | PCM.PROGNOTE ---
Patient Problems: Active and Suspected Problems Osteomyelitis (Acute) Subjective: Pt resting comfortably in bed. Minimal pain. Very little feeling in foot. No fevers or chills. He feels relatively unchanged. He has less drainage from his leg and stump. His MRI did show osteo of the stump and cuboid. - Physical Exam General: Alert, Oriented x3, Cooperative HEENT: Atraumatic, PERRLA, EOMI, Normocephalic Neck: Supple, No JVD, Negative Carotid Bruits Lungs: Clear to auscultation, Normal air movement Cardiovascular: Regular rate, No murmurs Abdomen: Bowel Sounds Present, Soft, Non Tender Extremities: No edema, Capillary Refill Less than 3 Seconds, - - some slough with very little surrounding erythema, no warmth of the stump. anterior distal left leg wound has less slough. plantar wound and heel wound black and hard with no fluctuance Skin: No rashes, No breakdown Musculoskeletal: No Tenderness to Palpation of Joints or Extremities Neurological: Cranial nerves II-XII grossly intact Psych/Mental Status: Normal Affect, Appropriate Vital Signs Temp Pulse Resp BP Pulse Ox 96.8 F L 58 L 18 110/73 95 02/11/18 09:27 02/11/18 09:27 02/11/18 09:27 02/11/18 09:27 02/11/18 09:27 Oxygen Delivery Method Room Air Weight: 97.9 kg Body Mass Index (BMI) 25.4 Intake and Output for Last 24 Hours 02/09/18 02/10/18 02/11/18 23:59 23:59 23:59 Intake Total 120 / 120 300 / 300 Output Total 200 / 200 Balance 120 / 120 100 / 100 Microbiology Past 72 Hours 02/10/18 15:51 Gram Stain - Final Wound - Leg, Left 02/10/18 14:55 Gram Stain - Final Wound Drainage - Aerobic & Anaerobic Swabs Wound Culture - Preliminary Gram negative sierra Laboratory Tests Past 24 Hrs 02/10/18 02/10/18 02/10/18 14:55 15:50 15:50 WBC 6.9 RBC 3.31 L Hgb 9.0 L Hct 30.3 L MCV 91.5 MCH 27.2 MCHC 29.7 L RDW 18.9 H RDW Differential 62.9 H Plt Count 138 L MPV 8.7 Immature Gran % (Auto) 0.300 Neut % (Auto) 67.4 Lymph % (Auto) 15.8 L [place] % (Auto) 15.0 H Eos % (Auto) 1.2 Baso % (Auto) 0.3 Absolute Neuts (auto) 4.6 Absolute Lymphs (auto) 1.08 Total Counted Not Reportable ESR Sodium 136 Potassium 4.2 Chloride 101 Carbon Dioxide 26.0 Anion Gap 9 BUN 27 H Creatinine 2.65 H Estim Creat Clear Calc 33.16 Est GFR (MDRD) Af Amer 31 L Est GFR (MDRD) Non-Af 26 L BUN/Creatinine Ratio 10.2 Glucose 120 H Hemoglobin A1c Uric Acid Calcium 8.3 L Phosphorus Magnesium Total Bilirubin AST ALT Alkaline Phosphatase C-React Prot High Sens Total Protein Albumin Globulin Albumin/Globulin Ratio Triglycerides Cholesterol LDL Cholesterol VLDL Cholesterol HDL Cholesterol S.aureus Protein A PCR NEGATIVE MRSA (PCR) Negative 02/10/18 02/10/18 02/11/18 15:50 15:50 06:43 WBC 6.0 RBC 3.19 L Hgb 8.8 L Hct 29.2 L MCV 91.5 MCH 27.6 MCHC 30.1 L RDW 18.7 H RDW Differential 62.3 H Plt Count 130 L MPV 8.5 Immature Gran % (Auto) 0.500 Neut % (Auto) 67.0 Lymph % (Auto) 18.2 L [place] % (Auto) 12.7 H Eos % (Auto) 1.3 Baso % (Auto) 0.3 Absolute Neuts (auto) 4.0 Absolute Lymphs (auto) 1.10 Total Counted Not Reportable ESR 93 H Sodium Potassium Chloride Carbon Dioxide Anion Gap BUN Creatinine Estim Creat Clear Calc Est GFR (MDRD) Af Amer Est GFR (MDRD) Non-Af BUN/Creatinine Ratio Glucose Hemoglobin A1c Uric Acid Calcium Phosphorus Magnesium Total Bilirubin AST ALT Alkaline Phosphatase C-React Prot High Sens 58.30 H Total Protein Albumin Globulin Albumin/Globulin Ratio Triglycerides Cholesterol LDL Cholesterol VLDL Cholesterol HDL Cholesterol S.aureus Protein A PCR MRSA (PCR) 02/11/18 02/11/18 06:43 06:43 WBC RBC Hgb Hct MCV MCH MCHC RDW RDW Differential Plt Count MPV Immature Gran % (Auto) Neut % (Auto) Lymph % (Auto) [place] % (Auto) Eos % (Auto) Baso % (Auto) Absolute Neuts (auto) Absolute Lymphs (auto) Total Counted ESR Sodium 140 Potassium 4.3 Chloride 103 Carbon Dioxide 26.0 Anion Gap 11 BUN 33 H Creatinine 3.13 H Estim Creat Clear Calc 28.07 Est GFR (MDRD) Af Amer 26 L Est GFR (MDRD) Non-Af 21 L BUN/Creatinine Ratio 10.5 Glucose 122 H Hemoglobin A1c 5.1 Uric Acid 1.4 L Calcium 8.2 L Phosphorus 4.7 Magnesium 2.4 Total Bilirubin 1.00 AST 20 ALT 20 Alkaline Phosphatase 388 H C-React Prot High Sens Total Protein 6.9 Albumin 2.2 L Globulin 4.7 H Albumin/Globulin Ratio 0.5 L Triglycerides 61 Cholesterol 99 LDL Cholesterol 55 VLDL Cholesterol 12 HDL Cholesterol 32 L S.aureus Protein A PCR MRSA (PCR) POC Glucose 02/11/18 02/11/18 02/10/18 11:24 06:12 20:50 POC Glucose 139 H 110 121 H 02/10/18 17:08 POC Glucose 99 Medical Necessity - Tobacco Use Smoking Status: Never smoker Assessment/Plan All Active Problems Ulcer of right lower extremity with fat layer exposed (Acute) Ulcer of left lower extremity with fat layer exposed (Acute) Pressure ulcer, heel, left, unstageable (Acute) 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 Osteomyelitis, Non healing diabetic wounds right BKA stump and left charcot heel, left open sloughing terrazas wound - recent cultures with Pseudomonas aeruginosa, acinetobacter baumannii, with heavy antibiotic resistance. D/w Dr. Bernabe - defer abx for now. -Need deep wounds for accurate cultures, the growth may be colonization of the wound area but not responsible for the underlying osteo as the wounds appear noninflamed, he has no fever or white count, and appears nontoxic -MRIs show osteo of both the right stump and left cuboid. -repeat wound cultures pending -Dr. Rivera is following for surgical needs. -He has followed Dr. Allen in the past for podiatry -Wound care nurse consult -Dietary consult for supplementation -Hx MRSA osteo and bacteremia, MSSA/MRSA screens neg. -Repeat PVRs -Healing is complicated by PAD, vasoconstrictive meds, DMt2, and nicotine abuse. -Attempt to decrease midodrine to once before dialysis (taking for dialysis releated hypotension) -uric acid low. 2. PAD complicating above - Obtain PVR's from [facility] [place] this year. Recent angioplasty there this year. 3. T2DM - complicating above - start home insulin therapy + ssi and titrate to response. A1C with appropriate control. 4. ESRD - Dr. Woody following for dialysis needs. 5. CAD - prior CABG - cardiologists at [facility] [place] in [place]. Continue home meds. Prior CABG 2010, prior [place]. 6. Hx PAF - currently SR. Not on OAC. S/p Cardioversion 7. Hypothyroid - synthroid 8. Thrombocytopenia - trend 9. C diff - completing oral Vanc therapy. Call SNF for stop date. 10. Debility - PTOT 11. Chronic anemia - normocytic, suspect chronic dz 2/2 esrd. Trend. DVT ppx: heparin, trend platelets. DC planning: return to SNF at [place]. This patient was seen by Kraig Arriola PA-C under the supervision of Doctor Michael.
--- NOTE | 2018-02-11 17:01 | LEAS ---
Arterial Study - Arterial Study Arterial Study: Bilateral lower extremity noninvasive arterial exam at rest Left lower extremity ulcerations Right lower extremity Not interrogated Left lower extremity The left DP index cannot be calculated due to artificially elevated systolic pressure greater than 254. The left posterior tibial cannot be interrogated due to ulcerations. Digital indices on the left are 0.46. Doppler waveforms involve the left dorsalis pedis are biphasic. Volume pulse recordings are dampened at the low thigh diminished at the calf ankle and digital levels Impression Right lower extremity not interrogated secondary to below-knee amputation Left lower extremity extraordinarily limited information available secondary to distal ulcerations and noncompressibility of vessels. Findings mostly based upon digital indices and waveforms. This suggest likely occlusion of the superficial femoral artery. Findings are consistent with medial calcification of vessel hightower. Digital index bordering upon critical ischemia. Clinical correlation is required secondary to the limited information available from this examination Gianfranco Brown M.D., F.A.C.S.
[2018-02-11 17:10] LABS: Bedside Glucose 114 mg/dL (70-110)
--- NOTE | 2018-02-11 17:38 | DIALYSIS ---
HD X 4 HRS ON A 3K BATH UF-1600ML TOLERATED TREATMENT WELL. GIVEN VENOFER 50 MG IV WITH DIALYSIS. RIJ CATH WITH GOOD FLOWS DSG CHANGED NO S/S OF INFECTION. REPORT GIVEN. PT STABLE
--- NOTE | 2018-02-11 18:37 | PCM.CONS.GEN ---
Problem List (1) Pressure ulcer, heel, left, unstageable Status: Acute (2) Diabetic ulcer of left foot Status: Acute (3) Peripheral arterial disease Status: Chronic (4) Charcot foot due to diabetes mellitus Status: Chronic Reason for Consult Date of Consultation: 02/11/18 Reason for Consultation: Left heel eschar and left plantar foot ulcer, Achilles ulcer. History of Present Illness: The patient is a 68 year old M [] Past Medical History Past Medical History (Chronic Problems): Chronic Problems Peripheral arterial disease (Chronic) S/P BKA (below knee amputation) unilateral (Chronic) Charcot foot due to diabetes mellitus (Chronic) Atrial fibrillation (Chronic) Hypothyroid (Chronic) ESRD (end stage renal disease) (Chronic) Open wound of plantar aspect of foot (Chronic) Orthostatic hypotension dysautonomic syndrome (Chronic) CKD (chronic kidney disease), stage III (Chronic) CAD (coronary artery disease) (Chronic) s/p cabg x 3 2010 5 stents last 2006 MRSA bacteremia (Chronic) Diabetic foot infection (Chronic) Diabetes (Chronic) Allergies atorvastatin calcium [From Lipitor] Adverse Reaction (Verified 07/30/15 16:32) SEVERE LEG CRAMPS Home Medications: Ambulatory Orders Medication Instructions Recorded Amiodarone HCl [Pacerone] 200 mg PO DAILY 08/02/13 Aspirin [Aspirin, Baby] 81 mg PO DAILY@0800 08/02/13 Finasteride [Proscar] 5 mg PO DAILY 08/02/13 Levothyroxine [Synthroid] 175 mcg PO DAILY 08/02/13 Acetaminophen [Tylenol] 650 mg PO Q4H PRN PRN 02/10/18 B Complx/C/Folic/Zinc/Copper/E 1 tablet PO DAILY 02/10/18 [Eql Stress B-Complex Tablet] Bethanechol Chloride 10 mg PO TID 02/10/18 Collagenase [Santyl] 250 units TOPICAL DAILY 02/10/18 Ergocalciferol [Vitamin D] 50,000 units PO QWEEK 02/10/18 Febuxostat [Uloric] 40 mg PO DAILY 02/10/18 Ferrous Sulfate 325 mg PO BIDCM 02/10/18 Insulin Lispro [Humalog] See Protocol SQ ACHS 02/10/18 Midodrine HCl 10 mg PO TID 02/10/18 Mupirocin [Bactroban] 1 applic TOPICAL DAILY 02/10/18 Nitroglycerin 0.4 mg SL PRN 02/10/18 Oxycodone HCl [Roxicodone] 5 mg PO Q8H PRN PRN 02/10/18 Senna [Senokot] 1 tablet PO BID 02/10/18 Vancomycin 125mg/5mL Susp 125 mg PO DAILY 02/10/18 Surgical History: - - RLE stent, BL LE angioplasty, cardiac stents, cardiac catheterizations, CABG x 3, toe amputation. Smoking Status: Never smoker - *Family History Maternal History Items: No pertinent history Patient Problems: Active and Suspected Problems Osteomyelitis (Acute) Subjective: Pt is known to me from my private office where he was treated for many years for diabetic foot ulcers and left Charcot foot. Pt states he has not had a fever during this entire episode. He states he just went to the wound center for a check and they recommended he be admitted to the hospital. I never really felt bad. Objective: Right lower extremity stump is covered with uriel wrap. Left lower leg has tubigrip to the knee and kerlix wrapped from bases of toes to distal knee. ABD on heel and shins. Folded blankets are used to elevate left foot, but heel is still resting on the bed. Pt had just finished dinner and seems tired. - Physical Exam General: Alert, Oriented x3, Cooperative, No apparent distress Extremities: No edema - There is no lymphedema to left leg as pt has been resting in bed with leg elevated. He is known to suffer from lymphedema and skin changes are present., Diminished Peripheral Pulses Skin: Ulcer/ Wound - Large unstageable necrotic heel wound to left foot is present. The eschar is dry without fluctuance or surrounding cellulitis. With palpation, no drainage is present to wound periphery. Well demarcated edges present. Along proximal terrazas are superficial wounds without exposed bone. Bases are granular with mild amount of serosanguinous drainage. Another wound is present to Achilles tendon, which appears superficial, and is covered with a dry scab. No fluctuance or drainage. Small superficial wounds to dorsal PIPJ's of left lesser toes. Plantar left midfoot shows somewhat thin keratotic tissue with a mild distal superficial blister that was open. With squeezing, a scant amount of thin serosanguinous drainage was expelled. No purulence. This wound was present in the past. Pt has success healing it with [facility] walker. He can no longer wear that boot without the right leg as he is too weak to ambulate safely. Now, he uses a tennis shoe with custom offloading diabetic insole. Musculoskeletal: - - Right LE BKA was performed at [facility] earlier this year. Charcot left foot. MRI questions osteomyelitis to left cuboid. Neurological: - - Severe diabetic neuropathy to left foot. Vital Signs Temp Pulse Resp BP Pulse Ox 96.8 F L 58 L 18 110/73 95 02/11/18 09:27 02/11/18 09:27 02/11/18 09:27 02/11/18 09:27 02/11/18 09:27 Oxygen Delivery Method Room Air Weight: 97.9 kg Body Mass Index (BMI) 25.4 Intake and Output for Last 24 Hours 02/09/18 02/10/18 02/11/18 23:59 23:59 23:59 Intake Total 120 / 120 540 / 540 Output Total 200 / 200 Balance 120 / 120 340 / 340 Microbiology Past 72 Hours 02/10/18 15:51 Gram Stain - Final Wound - Leg, Left Wound Culture - Preliminary Gram negative sierra 02/10/18 14:55 Gram Stain - Final Wound Drainage - Aerobic & Anaerobic Swabs Wound Culture - Preliminary Gram negative sierra Laboratory Tests Past 24 Hrs 02/10/18 02/10/18 02/10/18 14:55 15:50 15:50 WBC RBC Hgb Hct MCV MCH MCHC RDW RDW Differential Plt Count MPV Immature Gran % (Auto) Neut % (Auto) Lymph % (Auto) [place] % (Auto) Eos % (Auto) Baso % (Auto) Absolute Neuts (auto) Absolute Lymphs (auto) Total Counted ESR 93 H Sodium Potassium Chloride Carbon Dioxide Anion Gap BUN Creatinine Estim Creat Clear Calc Est GFR (MDRD) Af Amer Est GFR (MDRD) Non-Af BUN/Creatinine Ratio Glucose Hemoglobin A1c Uric Acid Calcium Phosphorus Magnesium Total Bilirubin AST ALT Alkaline Phosphatase C-React Prot High Sens 58.30 H Total Protein Albumin Globulin Albumin/Globulin Ratio Triglycerides Cholesterol LDL Cholesterol VLDL Cholesterol HDL Cholesterol S.aureus Protein A PCR NEGATIVE MRSA (PCR) Negative 02/11/18 02/11/18 02/11/18 06:43 06:43 06:43 WBC 6.0 RBC 3.19 L Hgb 8.8 L Hct 29.2 L MCV 91.5 MCH 27.6 MCHC 30.1 L RDW 18.7 H RDW Differential 62.3 H Plt Count 130 L MPV 8.5 Immature Gran % (Auto) 0.500 Neut % (Auto) 67.0 Lymph % (Auto) 18.2 L [place] % (Auto) 12.7 H Eos % (Auto) 1.3 Baso % (Auto) 0.3 Absolute Neuts (auto) 4.0 Absolute Lymphs (auto) 1.10 Total Counted Not Reportable ESR Sodium 140 Potassium 4.3 Chloride 103 Carbon Dioxide 26.0 Anion Gap 11 BUN 33 H Creatinine 3.13 H Estim Creat Clear Calc 28.07 Est GFR (MDRD) Af Amer 26 L Est GFR (MDRD) Non-Af 21 L BUN/Creatinine Ratio 10.5 Glucose 122 H Hemoglobin A1c 5.1 Uric Acid 1.4 L Calcium 8.2 L Phosphorus 4.7 Magnesium 2.4 Total Bilirubin 1.00 AST 20 ALT 20 Alkaline Phosphatase 388 H C-React Prot High Sens Total Protein 6.9 Albumin 2.2 L Globulin 4.7 H Albumin/Globulin Ratio 0.5 L Triglycerides 61 Cholesterol 99 LDL Cholesterol 55 VLDL Cholesterol 12 HDL Cholesterol 32 L S.aureus Protein A PCR MRSA (PCR) POC Glucose 02/11/18 02/11/18 02/11/18 17:04 11:24 06:12 POC Glucose 114 H 139 H 110 02/10/18 20:50 POC Glucose 121 H Assessment/Plan All Active Problems Ulcer of right lower extremity with fat layer exposed (Acute) Ulcer of left lower extremity with fat layer exposed (Acute) Pressure ulcer, heel, left, unstageable (Acute) 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 ulcer left plantar foot 2. unstageable left heel ulcer 3. ulcer left Achilles 4. ulcers left terrazas 5. DM with PN 6. Possible osteomyelitis left cuboid (foot) 7. Charcot left foot Plan: Discussed findings with pt. Tubigrip was removed and not recommended. While he is in a bed, and not walking, the leg is without edema. There are many obvious wounds resulting from pressure including the terrazas, Achilles. Tight wraps increase risk of nonhealing to those pronounced areas. The heel should also be suspended off the bed, with a pillow instead of folded blankets. The pillow offers more cushion, especially to the Achilles area. With severe PAD, conservative care for the left leg wounds is recommended. The necrotic ulcer of the heel is stable and can be kept dry with betadine. The left foot will be monitored, but no aggressive debridement to be performed. Podiatry will follow again and assess the keratotic tissue which should begin to peel off after further care and abx. Perhaps the possible cuboid infection could be treated medically. Any aggressive local debridement could result in necrosis and ultimately a limb amputation. Pt was reminded to not put any weight on the foot without the shoe in place. He understands. Thank you for consultation. Podiatry will continue to follow.
[2018-02-11 21:00] VITALS: BP 107/46; PULSE 62; RESP 16; TEMP 36.6; O2SAT 98
[2018-02-11] MEDS: Heparin Injection (Vial) 5,000 UNIT/ML VIAL 5000 UNIT SC (21:05)
[2018-02-11 23:25] LABS: Bedside Glucose 173 mg/dL (70-110)
[2018-02-12 03:00] VITALS: BP 95/42; PULSE 62; RESP 16; TEMP 36.4; O2SAT 97
[2018-02-12 03:36] LABS: Bedside Glucose 134 mg/dL (70-110)
[2018-02-12 06:32] VITALS: BP 102/45; BP 97/43; PULSE 66; PULSE 67
[2018-02-12] MEDS: oxyCODONE 5 MG Tablet PO (06:38)
[2018-02-12] MEDS: Levothyroxine 175 MCG Tablet PO (06:38)
[2018-02-12] MEDS: Nystatin Powder 15gm Bottle 1 APPLIC TOPICAL ×3 (06:38→23:11)
[2018-02-12] MEDS: BETHANECHOL CHLORIDE 25 MG TABLET 12.5 MG PO ×3 (06:38→23:17)
[2018-02-12 06:50] LABS: Absolute Lymphocyte Count 1.03 X10^3/ul (0.83-4.51); Absolute Neutrophil Count 4.8 X10^3/uL (2.0-7.7); Basophil# 0.02 X10^3/uL; Basophil% 0.3 % (0-1); Eosinophil# 0.05 X10^3/uL; Eosinophils% 0.7 % (0-5); Hematocrit 30.4 % (40-54); Lymphocyte # 1.03 X10^3/ul (4.0); Lymphocyte % 15.2 % (19-41); Mean Corp Hgb Conc 29.6 g/gl (32-36); Mean Corpuscular Hgb 27.3 pg (27.0-32.0); Mean Corpuscular Volume 92.1 fL (80-94); Mean Platelet Vol. 8.7 fl (6.2-12.0); Monocyte# 0.88 X10^3/uL; Neutrophil # 4.76 X10^3/uL (2.7-7.7); Neutrophil % 70.5 % (47-70); Platelet Count 117 K/mm3 (150-450); RBC Distribution Width CV 18.9 % (11.6-14.6); RBC Distribution Width SD 63.1 fl (35.1-43.9); White Blood Count 6.8 K/mm3 (4.4-11.0)
[2018-02-12 06:50] LABS: Bedside Glucose 103 mg/dL (70-110)
--- NOTE | 2018-02-12 06:55 | NURSING ---
Informed pt. that there is an order to do orthostatic vital signs which requires pt. to sit on side of the bed and stand. Per pt. he is not able to sit on the side of the bed very well and he is not able to stand. Pt. a shelly lift at [facility].
[2018-02-12 06:56] LABS: POSITIVE COUNT NO; POSITIVE DIFFERENTIAL NO; POSITIVE MORPHOLOGY NO
[2018-02-12 06:59] LABS: Anion Gap 8 (5-15); BUN 21 mg/dL (7-18); BUN/Creat Ratio 9.1 RATIO (10-20); Calcium,Total 8.1 mg/dL (8.5-10.1); Chloride 102 mmol/L (98-107); Creatinine, Serum 2.31 mg/dL (0.70-1.30); EST Glomerular Filtration Rate 30 mL/min (>60); Est Glom Filt Rate - Afr Amer 36 mL/min (>60); Estimated Creatinine Clearance 38.04 ml/min; Glucose 90 mg/dL (74-106); Potassium 4.3 mmol/L (3.5-5.1); Sodium Level 139 mmol/L (136-145)
--- NOTE | 2018-02-12 07:14 | PCM.PN.HOSP ---
Patient Problems: Active and Suspected Problems Osteomyelitis (Acute) Vitals/I&O's: Vital Signs Temp Pulse Resp BP Pulse Ox 97.6 F L 66 16 97/43 L 97 02/12/18 03:00 02/12/18 06:32 02/12/18 03:00 02/12/18 06:32 02/12/18 03:00 Oxygen Delivery Method Room Air Weight: 97.9 kg Body Mass Index (BMI) 25.4 Orthostatic Vital Signs Start: 02/12/18 06:32 Freq: q24h Status: Active Protocol: Activity Type Activity Date Activity User E-Sign Co-Sign Detail Recorded Client Recorded Date Recorded By Document 02/12/18 06:32 [place] [id number] 02/12/18 06:35 [place] 02/12/18 06:32 Orthostatic Vitals Sitting -Blood Pressure (90/60-120/80) 102/45 L -Extremity Use Left Arm -Pulse Rate (60-100) 67 Lying -Blood Pressure (90/60-120/80) 97/43 L -Extremity Use Left Arm -Pulse Rate (60-100) 66 Intake and Output for Last 24 Hours 02/10/18 02/11/18 02/12/18 23:59 23:59 23:59 Intake Total 120 / 120 540 / 540 400 / 400 Output Total 200 / 200 1750 / 1750 Balance 120 / 120 340 / 340 -1350 / -1350 Microbiology Past 72 Hours 02/10/18 15:51 Wound - Leg, Left Gram Stain - Final 02/10/18 15:51 Wound - Leg, Left Wound Culture - Preliminary Gram negative sierra 02/10/18 14:55 Wound Drainage - Aerobic & Anaerobic Swabs Gram Stain - Final 02/10/18 14:55 Wound Drainage - Aerobic & Anaerobic Swabs Wound Culture - Preliminary Gram negative sierra Laboratory Results 02/11/18 06:43: WBC 6.0, RBC 3.19 L, Hgb 8.8 L, Hct 29.2 L, MCV 91.5, MCH 27.6, MCHC 30.1 L, RDW 18.7 H, RDW Differential 62.3 H, Plt Count 130 L, MPV 8.5, Immature Gran % (Auto) 0.500, Neut % (Auto) 67.0, Lymph % (Auto) 18.2 L, [place] % (Auto) 12.7 H, Eos % (Auto) 1.3, Baso % (Auto) 0.3, Absolute Neuts (auto) 4.0, Absolute Lymphs (auto) 1.10, Total Counted Not Reportable 02/11/18 06:43: Sodium 140, Potassium 4.3, Chloride 103, Carbon Dioxide 26.0, Anion Gap 11, BUN 33 H, Creatinine 3.13 H, Estim Creat Clear Calc 28.07, Est GFR (MDRD) Af Amer 26 L, Est GFR (MDRD) Non-Af 21 L, BUN/Creatinine Ratio 10.5, Glucose 122 H, Uric Acid 1.4 L, Calcium 8.2 L, Phosphorus 4.7, Magnesium 2.4, Total Bilirubin 1.00, AST 20, ALT 20, Alkaline Phosphatase 388 H, Total Protein 6.9, Albumin 2.2 L, Globulin 4.7 H, Albumin/Globulin Ratio 0.5 L, Triglycerides 61, Cholesterol 99, LDL Cholesterol 55, VLDL Cholesterol 12, HDL Cholesterol 32 L 02/11/18 06:43: Hemoglobin A1c 5.1 02/11/18 11:24: POC Glucose 139 H 02/11/18 17:04: POC Glucose 114 H 02/11/18 21:03: POC Glucose 173 H 02/12/18 03:14: POC Glucose 134 H 02/12/18 06:25: WBC 6.8, RBC 3.30 L, Hgb 9.0 L, Hct 30.4 L, MCV 92.1, MCH 27.3, MCHC 29.6 L, RDW 18.9 H, RDW Differential 63.1 H, Plt Count 117 L, MPV 8.7, Immature Gran % (Auto) 0.300, Neut % (Auto) 70.5 H, Lymph % (Auto) 15.2 L, [place] % (Auto) 13.0 H, Eos % (Auto) 0.7, Baso % (Auto) 0.3, Absolute Neuts (auto) 4.8, Absolute Lymphs (auto) 1.03, Total Counted Not Reportable 02/12/18 06:25: Sodium 139, Potassium 4.3, Chloride 102, Carbon Dioxide 29.0, Anion Gap 8, BUN 21 H, Creatinine 2.31 H, Estim Creat Clear Calc 38.04, Est GFR (MDRD) Af Amer 36 L, Est GFR (MDRD) Non-Af 30 L, BUN/Creatinine Ratio 9.1 L, Glucose 90, Calcium 8.1 L 02/12/18 06:41: POC Glucose 103 Current Medications Acetaminophen (Tylenol) 650 mg PO Q6H PRN PRN PRN Reason: PAIN Amiodarone HCl (Cordarone) 200 mg PO DAILY [facility] Last Admin: 02/11/18 09:33 Dose: 200 mg Aspirin (Aspirin, Baby) 81 mg PO DAILY@0800 [facility] Last Admin: 02/11/18 09:34 Dose: 81 mg Bethanechol Chloride (Bethanechol Chloride) 12.5 mg PO TID [facility] Last Admin: 02/12/18 06:38 Dose: 12.5 mg Ergocalciferol (Vitamin D) 50,000 unit PO QWEEK [facility] Ferrous Sulfate (Ferrous Sulfate) 325 mg PO BIDCM [facility] Last Admin: 02/11/18 17:05 Dose: 325 mg Finasteride (Proscar) 5 mg PO DAILY [facility] Last Admin: 02/11/18 09:34 Dose: 5 mg Heparin Sodium (Porcine) (Heparin Na) 5,000 unit SC Q12 [facility] Last Admin: 02/11/18 21:05 Dose: 5,000 u Sodium Chloride () 250 mls @ 15 mls/hr IV .[id number] PRN PRN Reason: SALINE FLUSH Insulin Human Lispro (Humalog Kwikpen (Bkc)) 0 unit SC ACHS [facility] PRN Reason: Protocol Last Admin: 02/12/18 06:54 Dose: Not Given Levothyroxine Sodium (Synthroid) 175 mcg PO DAILY@0600 [facility] Last Admin: 02/12/18 06:38 Dose: 175 mcg Nutritional Formula (Nepro Carb Steady) 120 ml PO 4X/DAY [facility] Last Admin: 02/11/18 21:08 Dose: 120 ml Nystatin (Mycostatin Powder) 1 applic TOPICAL TID [facility] PRN Reason: Protocol Last Admin: 02/12/18 06:38 Dose: 1 applicatio Oxycodone HCl (Oxyir) 5 mg PO Q6H PRN PRN PRN Reason: SEVERE PAIN (6-10/10) Last Admin: 02/12/18 06:38 Dose: 5 mg Senna (Senokot) 1 tablet PO BID [facility] Last Admin: 02/11/18 21:08 Dose: Not Given Sodium Chloride () 5 - 30 ml IV UD PRN PRN Reason: SALINE FLUSH Vancomycin HCl (Vancomycin 125mg/5ml Susp) 125 mg PO DAILY [facility] Last Admin: 02/11/18 09:34 Dose: 125 mg Medical Necessity - Tobacco Use Smoking Status: Never smoker Assessment/Plan All Active Problems Ulcer of right lower extremity with fat layer exposed (Acute) Ulcer of left lower extremity with fat layer exposed (Acute) Pressure ulcer, heel, left, unstageable (Acute) Diabetic ulcer of left foot (Acute) BKA stump complication (Acute) Charcot ankle (Acute) Osteomyelitis (Acute) Cellulitis of left leg (Resolved)
[2018-02-12 09:40] VITALS: BP 94/54; PULSE 62; RESP 18; TEMP 36.3; O2SAT 93
[2018-02-12] MEDS: Ferrous Sulfate 325 MG Tablet PO ×2 (09:41→17:50)
[2018-02-12] MEDS: Amiodarone 200 MG Tablet PO (09:41)
[2018-02-12] MEDS: Finasteride 5 MG Tablet PO (09:41)
[2018-02-12] MEDS: Febuxostat 40 MG TABLET PO (09:41)
[2018-02-12] MEDS: Nepro Liquid 120 ML LIQUID PO ×3 (09:41→23:11)
[2018-02-12] MEDS: Aspirin 81 MG TAB.CHEW PO (09:42)
[2018-02-12] MEDS: Heparin Injection (Vial) 5,000 UNIT/ML VIAL 5000 UNIT SC ×2 (09:42→23:16)
[2018-02-12 11:56] LABS: Bedside Glucose 105 mg/dL (70-110)
--- NOTE | 2018-02-12 15:38 | PCM.PROGNOTE ---
<Kraig Arriola - Last Filed: 02/12/18 15:38> Patient Problems: Active and Suspected Problems Osteomyelitis (Acute) Subjective: Pt remains comfortably in bed NAD. No fever/chills. Nontoxic. No SOB, cough. No malaise, or increased weakness. No dizziness LH. No palpitations. The patient is very uncomfortable with the idea of further surgery. - Physical Exam General: Alert, Oriented x3, Cooperative HEENT: Atraumatic, PERRLA, EOMI, Normocephalic Neck: Supple, No JVD, Negative Carotid Bruits Lungs: Clear to auscultation, Normal air movement Cardiovascular: Regular rate, No murmurs Abdomen: Bowel Sounds Present, Soft, Non Tender Extremities: No edema, Capillary Refill Less than 3 Seconds Skin: No rashes, No breakdown Musculoskeletal: No Tenderness to Palpation of Joints or Extremities Neurological: Cranial nerves II-XII grossly intact Psych/Mental Status: Normal Affect, Appropriate, Alert and oriented to time, place, person, mood and affect Vital Signs Temp Pulse Resp BP Pulse Ox 97.4 F L 62 18 94/54 L 93 02/12/18 09:40 02/12/18 09:40 02/12/18 09:40 02/12/18 09:40 02/12/18 09:40 Oxygen Delivery Method Room Air Weight: 97.9 kg Body Mass Index (BMI) 25.4 Orthostatic Vital Signs Start: 02/12/18 06:32 Freq: q24h Status: Active Protocol: Activity Type Activity Date Activity User E-Sign Co-Sign Detail Recorded Client Recorded Date Recorded By Document 02/12/18 06:32 MD [id number] 02/12/18 06:35 MD 02/12/18 06:32 Orthostatic Vitals Sitting -Blood Pressure (90/60-120/80) 102/45 L -Extremity Use Left Arm -Pulse Rate (60-100) 67 Lying -Blood Pressure (90/60-120/80) 97/43 L -Extremity Use Left Arm -Pulse Rate (60-100) 66 Intake and Output for Last 24 Hours 02/10/18 02/11/18 02/12/18 23:59 23:59 23:59 Intake Total 120 / 120 540 / 540 520 / 520 Output Total 200 / 200 1750 / 1750 Balance 120 / 120 340 / 340 -1230 / -1230 Microbiology Past 72 Hours 02/10/18 15:51 Gram Stain - Final Wound - Leg, Left Wound Culture - Preliminary GNR Poss Pseudomonas sp Gram negative sierra 02/10/18 14:55 Gram Stain - Final Wound Drainage - Aerobic & Anaerobic Swabs Wound Culture - Preliminary Acinetobacter baumannii GNR Poss Pseudomonas sp Anaerobic Culture - Preliminary No growth in 48 hours. Laboratory Tests Past 24 Hrs 02/12/18 02/12/18 06:25 06:25 WBC 6.8 RBC 3.30 L Hgb 9.0 L Hct 30.4 L MCV 92.1 MCH 27.3 MCHC 29.6 L RDW 18.9 H RDW Differential 63.1 H Plt Count 117 L MPV 8.7 Immature Gran % (Auto) 0.300 Neut % (Auto) 70.5 H Lymph % (Auto) 15.2 L [place] % (Auto) 13.0 H Eos % (Auto) 0.7 Baso % (Auto) 0.3 Absolute Neuts (auto) 4.8 Absolute Lymphs (auto) 1.03 Total Counted Not Reportable Sodium 139 Potassium 4.3 Chloride 102 Carbon Dioxide 29.0 Anion Gap 8 BUN 21 H Creatinine 2.31 H Estim Creat Clear Calc 38.04 Est GFR (MDRD) Af Amer 36 L Est GFR (MDRD) Non-Af 30 L BUN/Creatinine Ratio 9.1 L Glucose 90 Calcium 8.1 L POC Glucose 02/12/18 02/12/18 02/12/18 11:50 06:41 03:14 POC Glucose 105 103 134 H 02/11/18 02/11/18 21:03 17:04 POC Glucose 173 H 114 H Medical Necessity - Tobacco Use Smoking Status: Never smoker Assessment/Plan All Active Problems Ulcer of right lower extremity with fat layer exposed (Acute) Ulcer of left lower extremity with fat layer exposed (Acute) Pressure ulcer, heel, left, unstageable (Acute) 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 Osteomyelitis, Non healing diabetic wounds right BKA stump and left charcot heel, left open sloughing terrazas wound - recent cultures with Pseudomonas aeruginosa, acinetobacter baumannii, with heavy antibiotic resistance. D/w Dr. Bernabe - defer abx for now. -Need deep wounds for accurate cultures, the growth may be colonization of the wound area but not responsible for the underlying osteo as the wounds appear noninflamed, he has no fever or white count, and appears nontoxic -MRIs show osteo of both the right stump and left cuboid. -repeat wound cultures pending -Dr. Rivera is following for surgical needs - he is planning debridement and culture of the stump, possible revision, possible conversion to AKA. The pt is reluctant. -Dr. Allne not planning any debridement of charcot foot wounds -Wound care nurse consult -Dietary consult for supplementation -Hx MRSA osteo and bacteremia, MSSA/MRSA screens neg. -Repeat PVRs done left leg, with severe disease. -Healing is complicated by PAD, vasoconstrictive meds, DMt2, and nicotine abuse. -Off midodrine and stable. -uric acid low. -Echo with EF 40, no vegetations noted, mild pulm htn. 2. PAD complicating above - repeat PVRs done, prior on chart. Recent angioplasty at [place] this year. 3. T2DM - complicating above - start home insulin therapy + ssi and titrate to response. A1C with appropriate control. 4. ESRD - Dr. Woody following for dialysis needs. 5. CAD - prior CABG - cardiologists at [facility] in [place]. Continue home meds. Prior CABG 2010, prior [place]. 6. Hx PAF - currently SR. Not on OAC. S/p Cardioversion 7. Hypothyroid - synthroid 8. Thrombocytopenia - trend 9. C diff - completing oral Vanc therapy. Call SNF for stop date. 10. Debility - PTOT 11. Chronic anemia - normocytic, suspect chronic dz 2/2 esrd. Trend. DVT ppx: heparin, trend platelets. DC planning: return to SNF at [place]. This patient was seen by Kraig Arriola PA-C under the supervision of Doctor Marquez. <Alma,Kacy - Last Filed: 02/12/18 16:34> - Physical Exam Vital Signs Temp Pulse Resp BP Pulse Ox 97.8 F 52 L 16 94/48 L 96 02/12/18 15:40 02/12/18 15:40 02/12/18 15:40 02/12/18 15:40 02/12/18 15:40 Oxygen Delivery Method Room Air Weight: 97.9 kg Body Mass Index (BMI) 25.4 Orthostatic Vital Signs Start: 02/12/18 06:32 Freq: q24h Status: Active Protocol: Activity Type Activity Date Activity User E-Sign Co-Sign Detail Recorded Client Recorded Date Recorded By Document 02/12/18 06:32 TITO [id number] 02/12/18 06:35 MD 02/12/18 06:32 Orthostatic Vitals Sitting -Blood Pressure (90/60-120/80) 102/45 L -Extremity Use Left Arm -Pulse Rate (60-100) 67 Lying -Blood Pressure (90/60-120/80) 97/43 L -Extremity Use Left Arm -Pulse Rate (60-100) 66 Intake and Output for Last 24 Hours 02/10/18 02/11/18 02/12/18 23:59 23:59 23:59 Intake Total 120 / 120 540 / 540 520 / 520 Output Total 200 / 200 1750 / 1750 Balance 120 / 120 340 / 340 -1230 / -1230 Microbiology Past 72 Hours 02/10/18 15:51 Gram Stain - Final Wound - Leg, Left Wound Culture - Preliminary GNR Poss Pseudomonas sp Gram negative sierra 02/10/18 14:55 Gram Stain - Final Wound Drainage - Aerobic & Anaerobic Swabs Wound Culture - Preliminary Acinetobacter baumannii GNR Poss Pseudomonas sp Anaerobic Culture - Preliminary No growth in 48 hours. Laboratory Tests Past 24 Hrs 02/12/18 02/12/18 06:25 06:25 WBC 6.8 RBC 3.30 L Hgb 9.0 L Hct 30.4 L MCV 92.1 MCH 27.3 MCHC 29.6 L RDW 18.9 H RDW Differential 63.1 H Plt Count 117 L MPV 8.7 Immature Gran % (Auto) 0.300 Neut % (Auto) 70.5 H Lymph % (Auto) 15.2 L [place] % (Auto) 13.0 H Eos % (Auto) 0.7 Baso % (Auto) 0.3 Absolute Neuts (auto) 4.8 Absolute Lymphs (auto) 1.03 Total Counted Not Reportable Sodium 139 Potassium 4.3 Chloride 102 Carbon Dioxide 29.0 Anion Gap 8 BUN 21 H Creatinine 2.31 H Estim Creat Clear Calc 38.04 Est GFR (MDRD) Af Amer 36 L Est GFR (MDRD) Non-Af 30 L BUN/Creatinine Ratio 9.1 L Glucose 90 Calcium 8.1 L POC Glucose 02/12/18 02/12/18 02/12/18 11:50 06:41 03:14 POC Glucose 105 103 134 H 02/11/18 02/11/18 21:03 17:04 POC Glucose 173 H 114 H Assessment/Plan Patient was seen and examined independently. I agree with the interval history and physical exam as documented by physician malt specifications control assistant Kraig Arriola. Patient had no complaints at time of wheezing. Denies any pain. Does not want anymore surgery. Denies any fever or chills. Feels fatigued after his dialysis yesterday but denies any chest pain or dizziness or palpitations. Diarrhea has improved. Reviewed vitals, stable. Labs reviewed -appears stable Waiting on further workup by plastic surgery. Aware that podiatry team does not want to do anymore surgery. We will possibly plan on discharge if no workup results pending Code Visit Inpatient E&M: [id number] Subs Hosp L2
[2018-02-12 15:40] VITALS: BP 94/48; PULSE 52; RESP 16; TEMP 36.6; O2SAT 96
--- NOTE | 2018-02-12 15:50 | PN_ITS ---
<Kraig Arriola - Last Filed: 02/12/18 15:38> Patient Problems: Active and Suspected Problems Osteomyelitis (Acute) Subjective: Pt remains comfortably in bed NAD. No fever/chills. Nontoxic. No SOB, cough. No malaise, or increased weakness. No dizziness LH. No palpitations. The patient is very uncomfortable with the idea of further surgery. - Physical Exam General: Alert, Oriented x3, Cooperative HEENT: Atraumatic, PERRLA, EOMI, Normocephalic Neck: Supple, No JVD, Negative Carotid Bruits Lungs: Clear to auscultation, Normal air movement Cardiovascular: Regular rate, No murmurs Abdomen: Bowel Sounds Present, Soft, Non Tender Extremities: No edema, Capillary Refill Less than 3 Seconds Skin: No rashes, No breakdown Musculoskeletal: No Tenderness to Palpation of Joints or Extremities Neurological: Cranial nerves II-XII grossly intact Psych/Mental Status: Normal Affect, Appropriate, Alert and oriented to time, place, person, mood and affect Vital Signs Temp Pulse Resp BP Pulse Ox 97.4 F L 62 18 94/54 L 93 02/12/18 09:40 02/12/18 09:40 02/12/18 09:40 02/12/18 09:40 02/12/18 09:40 Oxygen Delivery Method Room Air Weight: 97.9 kg Body Mass Index (BMI) 25.4 Orthostatic Vital Signs Start: 02/12/18 06:32 Freq: q24h Status: Active Protocol: Activity Type Activity Date Activity User E-Sign Co-Sign Detail Recorded Client Recorded Date Recorded By Document 02/12/18 06:32 CO [id number] 02/12/18 06:35 CO 02/12/18 06:32 Orthostatic Vitals Sitting -Blood Pressure (90/60-120/80) 102/45 L -Extremity Use Left Arm -Pulse Rate (60-100) 67 Lying -Blood Pressure (90/60-120/80) 97/43 L -Extremity Use Left Arm -Pulse Rate (60-100) 66 Intake and Output for Last 24 Hours 02/10/18 02/11/18 02/12/18 23:59 23:59 23:59 Intake Total 120 / 120 540 / 540 520 / 520 Output Total 200 / 200 1750 / 1750 Balance 120 / 120 340 / 340 -1230 / -1230 Microbiology Past 72 Hours 02/10/18 15:51 Gram Stain - Final Wound - Leg, Left Wound Culture - Preliminary GNR Poss Pseudomonas sp Gram negative sierra 02/10/18 14:55 Gram Stain - Final Wound Drainage - Aerobic & Anaerobic Swabs Wound Culture - Preliminary Acinetobacter baumannii GNR Poss Pseudomonas sp Anaerobic Culture - Preliminary No growth in 48 hours. Laboratory Tests Past 24 Hrs 02/12/18 02/12/18 06:25 06:25 WBC 6.8 RBC 3.30 L Hgb 9.0 L Hct 30.4 L MCV 92.1 MCH 27.3 MCHC 29.6 L RDW 18.9 H RDW Differential 63.1 H Plt Count 117 L MPV 8.7 Immature Gran % (Auto) 0.300 Neut % (Auto) 70.5 H Lymph % (Auto) 15.2 L George % (Auto) 13.0 H Eos % (Auto) 0.7 Baso % (Auto) 0.3 Absolute Neuts (auto) 4.8 Absolute Lymphs (auto) 1.03 Total Counted Not Reportable Sodium 139 Potassium 4.3 Chloride 102 Carbon Dioxide 29.0 Anion Gap 8 BUN 21 H Creatinine 2.31 H Estim Creat Clear Calc 38.04 Est GFR (MDRD) Af Amer 36 L Est GFR (MDRD) Non-Af 30 L BUN/Creatinine Ratio 9.1 L Glucose 90 Calcium 8.1 L POC Glucose 02/12/18 02/12/18 02/12/18 11:50 06:41 03:14 POC Glucose 105 103 134 H 02/11/18 02/11/18 21:03 17:04 POC Glucose 173 H 114 H Medical Necessity - Tobacco Use Smoking Status: Never smoker Assessment/Plan All Active Problems Ulcer of right lower extremity with fat layer exposed (Acute) Ulcer of left lower extremity with fat layer exposed (Acute) Pressure ulcer, heel, left, unstageable (Acute) 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 Osteomyelitis, Non healing diabetic wounds right BKA stump and left charcot heel, left open sloughing terrazas wound - recent cultures with Pseudomonas aeruginosa, acinetobacter baumannii, with heavy antibiotic resistance. D/w Dr. Bernabe - defer abx for now. -Need deep wounds for accurate cultures, the growth may be colonization of the wound area but not responsible for the underlying osteo as the wounds appear noninflamed, he has no fever or white count, and appears nontoxic -MRIs show osteo of both the right stump and left cuboid. -repeat wound cultures pending -Dr. Rivera is following for surgical needs - he is planning debridement and culture of the stump, possible revision, possible conversion to AKA. The pt is reluctant. -Dr. Allen not planning any debridement of charcot foot wounds -Wound care nurse consult -Dietary consult for supplementation -Hx MRSA osteo and bacteremia, MSSA/MRSA screens neg. -Repeat PVRs done left leg, with severe disease. -Healing is complicated by PAD, vasoconstrictive meds, DMt2, and nicotine abuse. -Off midodrine and stable. -uric acid low. -Echo with EF 40, no vegetations noted, mild pulm htn. 2. PAD complicating above - repeat PVRs done, prior on chart. Recent angioplasty at [place] this year. 3. T2DM - complicating above - start home insulin therapy + ssi and titrate to response. A1C with appropriate control. 4. ESRD - Dr. Woody following for dialysis needs. 5. CAD - prior CABG - cardiologists at [facility] in [place]. Continue home meds. Prior CABG 2010, prior [place]. 6. Hx PAF - currently SR. Not on OAC. S/p Cardioversion 7. Hypothyroid - synthroid 8. Thrombocytopenia - trend 9. C diff - completing oral Vanc therapy. Call SNF for stop date. 10. Debility - PTOT 11. Chronic anemia - normocytic, suspect chronic dz 2/2 esrd. Trend. DVT ppx: heparin, trend platelets. DC planning: return [place] SNF [place]. This patient was seen by Kraig Arriola PA-C under the supervision of Doctor Marquez. <Alma,Kacy - Last Filed: 02/12/18 16:34> - Physical Exam Vital Signs Temp Pulse Resp BP Pulse Ox 97.8 F 52 L 16 94/48 L 96 02/12/18 15:40 02/12/18 15:40 02/12/18 15:40 02/12/18 15:40 02/12/18 15:40 Oxygen Delivery Method Room Air Weight: 97.9 kg Body Mass Index (BMI) 25.4 Orthostatic Vital Signs Start: 02/12/18 06:32 Freq: q24h Status: Active Protocol: Activity Type Activity Date Activity User E-Sign Co-Sign Detail Recorded Client Recorded Date Recorded By Document 02/12/18 06:32 TITO [id number] 02/12/18 06:35 CO 02/12/18 06:32 Orthostatic Vitals Sitting -Blood Pressure (90/60-120/80) 102/45 L -Extremity Use Left Arm -Pulse Rate (60-100) 67 Lying -Blood Pressure (90/60-120/80) 97/43 L -Extremity Use Left Arm -Pulse Rate (60-100) 66 Intake and Output for Last 24 Hours 02/10/18 02/11/18 02/12/18 23:59 23:59 23:59 Intake Total 120 / 120 540 / 540 520 / 520 Output Total 200 / 200 1750 / 1750 Balance 120 / 120 340 / 340 -1230 / -1230 Microbiology Past 72 Hours 02/10/18 15:51 Gram Stain - Final Wound - Leg, Left Wound Culture - Preliminary GNR Poss Pseudomonas sp Gram negative sierra 02/10/18 14:55 Gram Stain - Final Wound Drainage - Aerobic & Anaerobic Swabs Wound Culture - Preliminary Acinetobacter baumannii GNR Poss Pseudomonas sp Anaerobic Culture - Preliminary No growth in 48 hours. Laboratory Tests Past 24 Hrs 02/12/18 02/12/18 06:25 06:25 WBC 6.8 RBC 3.30 L Hgb 9.0 L Hct 30.4 L MCV 92.1 MCH 27.3 MCHC 29.6 L RDW 18.9 H RDW Differential 63.1 H Plt Count 117 L MPV 8.7 Immature Gran % (Auto) 0.300 Neut % (Auto) 70.5 H Lymph % (Auto) 15.2 L [place] % (Auto) 13.0 H Eos % (Auto) 0.7 Baso % (Auto) 0.3 Absolute Neuts (auto) 4.8 Absolute Lymphs (auto) 1.03 Total Counted Not Reportable Sodium 139 Potassium 4.3 Chloride 102 Carbon Dioxide 29.0 Anion Gap 8 BUN 21 H Creatinine 2.31 H Estim Creat Clear Calc 38.04 Est GFR (MDRD) Af Amer 36 L Est GFR (MDRD) Non-Af 30 L BUN/Creatinine Ratio 9.1 L Glucose 90 Calcium 8.1 L POC Glucose 02/12/18 02/12/18 02/12/18 11:50 06:41 03:14 POC Glucose 105 103 134 H 02/11/18 02/11/18 21:03 17:04 POC Glucose 173 H 114 H Assessment/Plan Patient was seen and examined independently. I agree with the interval history and physical exam as documented by physician education administrative assistant Kraig Arriola. Patient had no complaints at time of wheezing. Denies any pain. Does not want anymore surgery. Denies any fever or chills. Feels fatigued after his dialysis yesterday but denies any chest pain or dizziness or palpitations. Diarrhea has improved. Reviewed vitals, stable. Labs reviewed -appears stable Waiting on further workup by plastic surgery. Aware that podiatry team does not want to do anymore surgery. We will possibly plan on discharge if no workup results pending Code Visit Inpatient E&M: [id number] Subs Hosp L2
[2018-02-12] MEDS: Insulin Lispro 100 UNIT/ML INSULN.PEN SC (16:59)
[2018-02-12 17:05] LABS: Bedside Glucose 229 mg/dL (70-110)
[2018-02-12 22:49] VITALS: BP 91/44; PULSE 50; RESP 16; TEMP 35.8; O2SAT 100
[2018-02-12] MEDS: Senna Tablet 1 TABLET PO (23:11)
[2018-02-12 23:45] LABS: Bedside Glucose 163 mg/dL (70-110)
[2018-02-13 00:38] VITALS: BP 100/44
[2018-02-13 04:26] VITALS: BP 102/41; PULSE 51; RESP 16; TEMP 36.2; O2SAT 97
[2018-02-13 06:20] LABS: Absolute Neutrophil Count 3.8 X10^3/uL (2.0-7.7); Basophil# 0.01 X10^3/uL; Basophil% 0.2 % (0-1); Eosinophil# 0.08 X10^3/uL; Eosinophils% 1.5 % (0-5); Hematocrit 30.3 % (40-54); Hemoglobin 8.9 g/dl (13.0-16.5); Lymphocyte % 14.8 % (19-41); Mean Corp Hgb Conc 29.4 g/gl (32-36); Mean Corpuscular Hgb 27.9 pg (27.0-32.0); Monocyte# 0.66 X10^3/uL; Monocyte% 12.2 % (0-10); Neutrophil # 3.84 X10^3/uL (2.7-7.7); Neutrophil % 70.9 % (47-70); Platelet Count 123 K/mm3 (150-450); RBC Distribution Width CV 18.8 % (11.6-14.6); RBC Distribution Width SD 62.6 fl (35.1-43.9); Red Blood Count 3.19 M/mm3 (4.6-6.2); White Blood Count 5.4 K/mm3 (4.4-11.0)
[2018-02-13 06:24] LABS: POSITIVE COUNT NO; POSITIVE DIFFERENTIAL NO; POSITIVE MORPHOLOGY NO
[2018-02-13] MEDS: Menthol/Lanolin/Calamine/Znox 113 GM Tube 1 APPLIC TOPICAL ×3 (06:33→22:44)
[2018-02-13] MEDS: Nystatin Powder 15gm Bottle 1 APPLIC TOPICAL ×3 (06:34→22:42)
[2018-02-13] MEDS: BETHANECHOL CHLORIDE 25 MG TABLET 12.5 MG PO ×3 (06:34→22:44)
[2018-02-13] MEDS: Levothyroxine 175 MCG Tablet PO (06:35)
[2018-02-13 06:42] VITALS: BP 106/41; BP 109/46; PULSE 54; PULSE 55
[2018-02-13 06:43] LABS: Anion Gap 9 (5-15); BUN 33 mg/dL (7-18); BUN/Creat Ratio 10.5 RATIO (10-20); Calcium,Total 8.1 mg/dL (8.5-10.1); Chloride 103 mmol/L (98-107); Creatinine, Serum 3.14 mg/dL (0.70-1.30); EST Glomerular Filtration Rate 21 mL/min (>60); Est Glom Filt Rate - Afr Amer 25 mL/min (>60); Estimated Creatinine Clearance 27.98 ml/min; Glucose 142 mg/dL (74-106); Potassium 4.2 mmol/L (3.5-5.1); Prealbumin 11.3 mg/dL (20.0-40.0); Sodium Level 140 mmol/L (136-145)
[2018-02-13 07:25] LABS: Bedside Glucose 169 mg/dL (70-110)
[2018-02-13 09:40] VITALS: BP 103/51; PULSE 51; RESP 16; TEMP 36.3; O2SAT 99
[2018-02-13] MEDS: Nepro Liquid 120 ML LIQUID PO ×4 (09:43→22:41)
[2018-02-13] MEDS: Ferrous Sulfate 325 MG Tablet PO ×2 (09:43→16:40)
[2018-02-13] MEDS: Aspirin 81 MG TAB.CHEW PO (09:43)
[2018-02-13] MEDS: Finasteride 5 MG Tablet PO (09:43)
[2018-02-13] MEDS: Heparin Injection (Vial) 5,000 UNIT/ML VIAL 5000 UNIT SC ×2 (09:43→22:44)
[2018-02-13] MEDS: Amiodarone 200 MG Tablet PO (09:43)
[2018-02-13] MEDS: Febuxostat 40 MG TABLET PO (09:43)
--- NOTE | 2018-02-13 12:15 | PCM.PROGNOTE ---
<Kraig Arriola - Last Filed: 02/13/18 12:38> Patient Problems: Active and Suspected Problems Osteomyelitis (Acute) Subjective: Pt understands that Dr. Rivera has advised surgery for the stump, initially he was reluctant, he is now considering surgery. He continues to feel no different. No fever/chills. No worsening of pain/edema/warmth in foot or stump. He has not been out of bed since being in the hospital. He normally is up in a wheelchair. No n/v/d. - Physical Exam General: Alert, Oriented x3, Cooperative HEENT: Atraumatic, PERRLA, EOMI, Normocephalic Neck: Supple, No JVD, Negative Carotid Bruits Lungs: Clear to auscultation, Normal air movement Cardiovascular: Regular rate, No murmurs Abdomen: Bowel Sounds Present, Soft, Non Tender Extremities: No edema, Capillary Refill Less than 3 Seconds Skin: No rashes, No breakdown Musculoskeletal: No Tenderness to Palpation of Joints or Extremities Neurological: Cranial nerves II-XII grossly intact Psych/Mental Status: Normal Affect, Appropriate, Alert and oriented to time, place, person, mood and affect Vital Signs Temp Pulse Resp BP Pulse Ox 97.4 F L 51 L 16 103/51 L 99 02/13/18 09:40 02/13/18 09:40 02/13/18 09:40 02/13/18 09:40 02/13/18 09:40 Oxygen Delivery Method Room Air Weight: 97.9 kg Body Mass Index (BMI) 25.4 Orthostatic Vital Signs Start: 02/12/18 06:32 Freq: q24h Status: Active Protocol: Activity Type Activity Date Activity User E-Sign Co-Sign Detail Recorded Client Recorded Date Recorded By Document 02/13/18 06:42 MARLON [id number] 02/13/18 06:44 MARLON 02/13/18 06:42 Orthostatic Vitals Sitting -Blood Pressure (90/60-120/80) 109/46 L -Extremity Use Left Arm -Pulse Rate (60-100) 55 L Lying -Blood Pressure (90/60-120/80) 106/41 L -Extremity Use Left Arm -Pulse Rate (60-100) 54 L Intake and Output for Last 24 Hours 02/11/18 02/12/18 02/13/18 23:59 23:59 23:59 Intake Total 540 / 540 870 / 870 120 / 120 Output Total 200 / 200 2050 / 2050 0 / 0 Balance 340 / 340 -1180 / -1180 120 / 120 Microbiology Past 72 Hours 02/10/18 14:55 Gram Stain - Final Wound Drainage - Aerobic & Anaerobic Swabs Wound Culture - Preliminary Acinetobacter baumannii GNR Poss Pseudomonas sp Anaerobic Culture - Preliminary No growth in 48 hours. 02/10/18 15:51 Gram Stain - Final Wound - Leg, Left Wound Culture - Preliminary GNR Poss Pseudomonas sp Gram negative sierra 02/10/18 16:30 Blood Culture - Preliminary Blood Culture (Wb) - Anticubital Left No growth in 48 hours. 02/10/18 15:50 Blood Culture - Preliminary Blood Culture (Wb) - Anticubital Left No growth in 48 hours. Laboratory Tests Past 24 Hrs 02/13/18 02/13/18 05:35 05:35 WBC 5.4 RBC 3.19 L Hgb 8.9 L Hct 30.3 L MCV 95.0 H MCH 27.9 MCHC 29.4 L RDW 18.8 H RDW Differential 62.6 H Plt Count 123 L MPV 9.0 Immature Gran % (Auto) 0.400 Neut % (Auto) 70.9 H Lymph % (Auto) 14.8 L [place] % (Auto) 12.2 H Eos % (Auto) 1.5 Baso % (Auto) 0.2 Absolute Neuts (auto) 3.8 Absolute Lymphs (auto) 0.80 L Total Counted Not Reportable Sodium 140 Potassium 4.2 Chloride 103 Carbon Dioxide 28.0 Anion Gap 9 BUN 33 H Creatinine 3.14 H Estim Creat Clear Calc 27.98 Est GFR (MDRD) Af Amer 25 L Est GFR (MDRD) Non-Af 21 L BUN/Creatinine Ratio 10.5 Glucose 142 H Calcium 8.1 L Prealbumin 11.3 L POC Glucose 02/13/18 02/12/18 02/12/18 06:32 22:50 16:58 POC Glucose 169 H 163 H 229 H Medical Necessity - Tobacco Use Smoking Status: Never smoker Assessment/Plan All Active Problems Ulcer of right lower extremity with fat layer exposed (Acute) Ulcer of left lower extremity with fat layer exposed (Acute) Pressure ulcer, heel, left, unstageable (Acute) 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 Osteomyelitis, Non healing diabetic wounds right BKA stump and left charcot heel, left open sloughing terrazas wound - repeat cultures continue to show the same resistant organisms, however we do not know if this is superficial colonization or the pathogens responsible for his undlerying osteo. Deep cultures are indicated to direct abx therapy. Dr. Rivera is following and plans for a debridement, stump revision, possible conversion to AKA, with deep cultures if the patient is agreeable, the patient however is wavering in his decision to have surgery. Dr. Allen is following for the charcot foot and has no plans for any aggressive care. ID is following and is deferring abx therapy given the resistant nature of the bacteria until we have deep cultures, unless the patient becomes toxic. He remains comfortable and without f/c/leukocytosis. -Repeat echo done. See results. No reported vegetation -Blood cx negx48 hours. 2. PAD complicating above - repeat PVRs done, prior on chart. Recent angioplasty at [facility] this year. 3. T2DM - complicating above - start home insulin therapy + ssi and titrate to response. A1C with appropriate control. 4. ESRD - Dr. Woody following for dialysis needs. 5. CAD - prior CABG - cardiologists at [facility] in [place]. Continue home meds. Prior CABG 2010, prior [place]. 6. Hx PAF - currently SR. Not on OAC. S/p Cardioversion 7. Hypothyroid - synthroid 8. Thrombocytopenia - trend 9. C diff - completing oral Vanc therapy. Call SNF for stop date. 10. Debility - PTOT 11. Chronic anemia - normocytic, suspect chronic dz 2/2 esrd. Trend. DVT ppx: heparin, trend platelets. DC planning: return to SNF at [place]. This patient was seen by Kraig Arriola PA-C under the supervision of Doctor Marquez. <Kacy Marquez - Last Filed: 02/13/18 15:33> - Physical Exam Vital Signs Temp Pulse Resp BP Pulse Ox 96.8 F L 50 L 16 98/43 L 100 02/13/18 14:55 02/13/18 14:55 02/13/18 14:55 02/13/18 14:55 02/13/18 14:55 Oxygen Delivery Method Room Air Weight: 97.9 kg Body Mass Index (BMI) 25.4 Orthostatic Vital Signs Start: 02/12/18 06:32 Freq: q24h Status: Active Protocol: Activity Type Activity Date Activity User E-Sign Co-Sign Detail Recorded Client Recorded Date Recorded By Document 02/13/18 06:42 MARLON [id number] 02/13/18 06:44 MARLON 02/13/18 06:42 Orthostatic Vitals Sitting -Blood Pressure (90/60-120/80) 109/46 L -Extremity Use Left Arm -Pulse Rate (60-100) 55 L Lying -Blood Pressure (90/60-120/80) 106/41 L -Extremity Use Left Arm -Pulse Rate (60-100) 54 L Intake and Output for Last 24 Hours 02/11/18 02/12/18 02/13/18 23:59 23:59 23:59 Intake Total 540 / 540 870 / 870 320 / 320 Output Total 200 / 200 2050 / 2050 100 / 100 Balance 340 / 340 -1180 / -1180 220 / 220 Microbiology Past 72 Hours 02/10/18 14:55 Gram Stain - Final Wound Drainage - Aerobic & Anaerobic Swabs Wound Culture - Preliminary Acinetobacter baumannii GNR Poss Pseudomonas sp Anaerobic Culture - Preliminary No growth in 48 hours. 02/10/18 15:51 Gram Stain - Final Wound - Leg, Left Wound Culture - Preliminary GNR Poss Pseudomonas sp Gram negative sierra 02/10/18 16:30 Blood Culture - Preliminary Blood Culture (Wb) - Anticubital Left No growth in 48 hours. 02/10/18 15:50 Blood Culture - Preliminary Blood Culture (Wb) - Anticubital Left No growth in 48 hours. Laboratory Tests Past 24 Hrs 02/13/18 02/13/18 05:35 05:35 WBC 5.4 RBC 3.19 L Hgb 8.9 L Hct 30.3 L MCV 95.0 H MCH 27.9 MCHC 29.4 L RDW 18.8 H RDW Differential 62.6 H Plt Count 123 L MPV 9.0 Immature Gran % (Auto) 0.400 Neut % (Auto) 70.9 H Lymph % (Auto) 14.8 L [place] % (Auto) 12.2 H Eos % (Auto) 1.5 Baso % (Auto) 0.2 Absolute Neuts (auto) 3.8 Absolute Lymphs (auto) 0.80 L Total Counted Not Reportable Sodium 140 Potassium 4.2 Chloride 103 Carbon Dioxide 28.0 Anion Gap 9 BUN 33 H Creatinine 3.14 H Estim Creat Clear Calc 27.98 Est GFR (MDRD) Af Amer 25 L Est GFR (MDRD) Non-Af 21 L BUN/Creatinine Ratio 10.5 Glucose 142 H Calcium 8.1 L Prealbumin 11.3 L POC Glucose 02/13/18 02/13/18 02/12/18 11:58 06:32 22:50 POC Glucose 189 H 169 H 163 H 02/12/18 16:58 POC Glucose 229 H Assessment/Plan Patient was seen and examined independently. I agree with the interval history and physical exam as documented by physician digital marketing assistant Kraig Arriola. Patient feels well, denies any new complaints. Not in pain. No diarrhea. Denies any fever or chills. Reviewed vitals, stable. Labs reviewed -appears stable. Discussed with patient who is not agreeable to any surgery in this admission. Discussed with DR. Rivera, no urgent need for surgery. Patient can be followed closely in the outpatient wound center in a week. Will discuss with case maker and discharge back to the SNF to follow-up with ID, podiatry and Dr. Rivera. Code Visit Inpatient E&M: 31217 Subs Hosp L2
--- NOTE | 2018-02-13 12:20 | PN_ITS ---
Addendum entered and electronically signed by MANUEL Galindo 02/13/18 12:38: Code Visit Addendum: pt has been on vanco for c diff for over 1 month, will dc. Original Note: <Kraig Arriola - Last Filed: 02/13/18 12:38> Patient Problems: Active and Suspected Problems Osteomyelitis (Acute) Subjective: Pt understands that Dr. Rivera has advised surgery for the stump, initially he was reluctant, he is now considering surgery. He continues to feel no different. No fever/chills. No worsening of pain/edema/warmth in foot or stump. He has not been out of bed since being in the hospital. He normally is up in a wheelchair. No n/v/d. - Physical Exam General: Alert, Oriented x3, Cooperative HEENT: Atraumatic, PERRLA, EOMI, Normocephalic Neck: Supple, No JVD, Negative Carotid Bruits Lungs: Clear to auscultation, Normal air movement Cardiovascular: Regular rate, No murmurs Abdomen: Bowel Sounds Present, Soft, Non Tender Extremities: No edema, Capillary Refill Less than 3 Seconds Skin: No rashes, No breakdown Musculoskeletal: No Tenderness to Palpation of Joints or Extremities Neurological: Cranial nerves II-XII grossly intact Psych/Mental Status: Normal Affect, Appropriate, Alert and oriented to time, place, person, mood and affect Vital Signs Temp Pulse Resp BP Pulse Ox 97.4 F L 51 L 16 103/51 L 99 02/13/18 09:40 02/13/18 09:40 02/13/18 09:40 02/13/18 09:40 02/13/18 09:40 Oxygen Delivery Method Room Air Weight: 97.9 kg Body Mass Index (BMI) 25.4 Orthostatic Vital Signs Start: 02/12/18 06:32 Freq: q24h Status: Active Protocol: Activity Type Activity Date Activity User E-Sign Co-Sign Detail Recorded Client Recorded Date Recorded By Document 02/13/18 06:42 MARLON [id number] 02/13/18 06:44 MARLON 02/13/18 06:42 Orthostatic Vitals Sitting -Blood Pressure (90/60-120/80) 109/46 L -Extremity Use Left Arm -Pulse Rate (60-100) 55 L Lying -Blood Pressure (90/60-120/80) 106/41 L -Extremity Use Left Arm -Pulse Rate (60-100) 54 L Intake and Output for Last 24 Hours 02/11/18 02/12/18 02/13/18 23:59 23:59 23:59 Intake Total 540 / 540 870 / 870 120 / 120 Output Total 200 / 200 2050 / 2050 0 / 0 Balance 340 / 340 -1180 / -1180 120 / 120 Microbiology Past 72 Hours 02/10/18 14:55 Gram Stain - Final Wound Drainage - Aerobic & Anaerobic Swabs Wound Culture - Preliminary Acinetobacter baumannii GNR Poss Pseudomonas sp Anaerobic Culture - Preliminary No growth in 48 hours. 02/10/18 15:51 Gram Stain - Final Wound - Leg, Left Wound Culture - Preliminary GNR Poss Pseudomonas sp Gram negative sierra 02/10/18 16:30 Blood Culture - Preliminary Blood Culture (Wb) - Anticubital Left No growth in 48 hours. 02/10/18 15:50 Blood Culture - Preliminary Blood Culture (Wb) - Anticubital Left No growth in 48 hours. Laboratory Tests Past 24 Hrs 02/13/18 02/13/18 05:35 05:35 WBC 5.4 RBC 3.19 L Hgb 8.9 L Hct 30.3 L MCV 95.0 H MCH 27.9 MCHC 29.4 L RDW 18.8 H RDW Differential 62.6 H Plt Count 123 L MPV 9.0 Immature Gran % (Auto) 0.400 Neut % (Auto) 70.9 H Lymph % (Auto) 14.8 L [place] % (Auto) 12.2 H Eos % (Auto) 1.5 Baso % (Auto) 0.2 Absolute Neuts (auto) 3.8 Absolute Lymphs (auto) 0.80 L Total Counted Not Reportable Sodium 140 Potassium 4.2 Chloride 103 Carbon Dioxide 28.0 Anion Gap 9 BUN 33 H Creatinine 3.14 H Estim Creat Clear Calc 27.98 Est GFR (MDRD) Af Amer 25 L Est GFR (MDRD) Non-Af 21 L BUN/Creatinine Ratio 10.5 Glucose 142 H Calcium 8.1 L Prealbumin 11.3 L POC Glucose 02/13/18 02/12/18 02/12/18 06:32 22:50 16:58 POC Glucose 169 H 163 H 229 H Medical Necessity - Tobacco Use Smoking Status: Never smoker Assessment/Plan All Active Problems Ulcer of right lower extremity with fat layer exposed (Acute) Ulcer of left lower extremity with fat layer exposed (Acute) Pressure ulcer, heel, left, unstageable (Acute) 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 Osteomyelitis, Non healing diabetic wounds right BKA stump and left charcot heel, left open sloughing terrazas wound - repeat cultures continue to show the same resistant organisms, however we do not know if this is superficial colonization or the pathogens responsible for his undlerying osteo. Deep cultures are indicated to direct abx therapy. Dr. Rivera is following and plans for a debridement, stump revision, possible conversion to AKA, with deep cultures if the patient is agreeable, the patient however is wavering in his decision to have surgery. Dr. Allen is following for the charcot foot and has no plans for any aggressive care. ID is following and is deferring abx therapy given the resistant nature of the bacteria until we have deep cultures, unless the patient becomes toxic. He remains comfortable and without f/c/leukocytosis. -Repeat echo done. See results. No reported vegetation -Blood cx negx48 hours. 2. PAD complicating above - repeat PVRs done, prior on chart. Recent angioplasty at [place] this year. 3. T2DM - complicating above - start home insulin therapy + ssi and titrate to response. A1C with appropriate control. 4. ESRD - Dr. Woody following for dialysis needs. 5. CAD - prior CABG - cardiologists at [facility] in [place]. Continue home meds. Prior CABG 2010, prior [place]. 6. Hx PAF - currently SR. Not on OAC. S/p Cardioversion 7. Hypothyroid - synthroid 8. Thrombocytopenia - trend 9. C diff - completing oral Vanc therapy. Call SNF for stop date. 10. Debility - PTOT 11. Chronic anemia - normocytic, suspect chronic dz 2/2 esrd. Trend. DVT ppx: heparin, trend platelets. DC planning: return to SNF at [place]. This patient was seen by Kraig Arriola PA-C under the supervision of Doctor Marquez. <Kacy Marquez - Last Filed: 02/13/18 15:33> - Physical Exam Vital Signs Temp Pulse Resp BP Pulse Ox 96.8 F L 50 L 16 98/43 L 100 02/13/18 14:55 02/13/18 14:55 02/13/18 14:55 02/13/18 14:55 02/13/18 14:55 Oxygen Delivery Method Room Air Weight: 97.9 kg Body Mass Index (BMI) 25.4 Orthostatic Vital Signs Start: 02/12/18 06:32 Freq: q24h Status: Active Protocol: Activity Type Activity Date Activity User E-Sign Co-Sign Detail Recorded Client Recorded Date Recorded By Document 02/13/18 06:42 MARLON [id number] 02/13/18 06:44 MARLON 02/13/18 06:42 Orthostatic Vitals Sitting -Blood Pressure (90/60-120/80) 109/46 L -Extremity Use Left Arm -Pulse Rate (60-100) 55 L Lying -Blood Pressure (90/60-120/80) 106/41 L -Extremity Use Left Arm -Pulse Rate (60-100) 54 L Intake and Output for Last 24 Hours 02/11/18 02/12/18 02/13/18 23:59 23:59 23:59 Intake Total 540 / 540 870 / 870 320 / 320 Output Total 200 / 200 2050 / 2050 100 / 100 Balance 340 / 340 -1180 / -1180 220 / 220 Microbiology Past 72 Hours 02/10/18 14:55 Gram Stain - Final Wound Drainage - Aerobic & Anaerobic Swabs Wound Culture - Preliminary Acinetobacter baumannii GNR Poss Pseudomonas sp Anaerobic Culture - Preliminary No growth in 48 hours. 02/10/18 15:51 Gram Stain - Final Wound - Leg, Left Wound Culture - Preliminary GNR Poss Pseudomonas sp Gram negative sierra 02/10/18 16:30 Blood Culture - Preliminary Blood Culture (Wb) - Anticubital Left No growth in 48 hours. 02/10/18 15:50 Blood Culture - Preliminary Blood Culture (Wb) - Anticubital Left No growth in 48 hours. Laboratory Tests Past 24 Hrs 02/13/18 02/13/18 05:35 05:35 WBC 5.4 RBC 3.19 L Hgb 8.9 L Hct 30.3 L MCV 95.0 H MCH 27.9 MCHC 29.4 L RDW 18.8 H RDW Differential 62.6 H Plt Count 123 L MPV 9.0 Immature Gran % (Auto) 0.400 Neut % (Auto) 70.9 H Lymph % (Auto) 14.8 L [place] % (Auto) 12.2 H Eos % (Auto) 1.5 Baso % (Auto) 0.2 Absolute Neuts (auto) 3.8 Absolute Lymphs (auto) 0.80 L Total Counted Not Reportable Sodium 140 Potassium 4.2 Chloride 103 Carbon Dioxide 28.0 Anion Gap 9 BUN 33 H Creatinine 3.14 H Estim Creat Clear Calc 27.98 Est GFR (MDRD) Af Amer 25 L Est GFR (MDRD) Non-Af 21 L BUN/Creatinine Ratio 10.5 Glucose 142 H Calcium 8.1 L Prealbumin 11.3 L POC Glucose 02/13/18 02/13/18 02/12/18 11:58 06:32 22:50 POC Glucose 189 H 169 H 163 H 02/12/18 16:58 POC Glucose 229 H Assessment/Plan Patient was seen and examined independently. I agree with the interval history and physical exam as documented by physician assistant professor nurse education Kraig Arriola. Patient feels well, denies any new complaints. Not in pain. No diarrhea. Denies any fever or chills. Reviewed vitals, stable. Labs reviewed -appears stable. Discussed with patient who is not agreeable to any surgery in this admission. Discussed with DR. Rivera, no urgent need for surgery. Patient can be followed closely in the outpatient wound center in a week. Will discuss with rn field case manager and discharge back to the SNF to follow-up with ID, podiatry and Dr. Rivera. Code Visit Inpatient E&M: [id number] Subs Hosp L2
[2018-02-13 12:45] LABS: Bedside Glucose 189 mg/dL (70-110)
[2018-02-13 14:55] VITALS: BP 98/43; PULSE 50; RESP 16; TEMP 36; O2SAT 100
[2018-02-13] MEDS: Insulin Lispro 100 UNIT/ML INSULN.PEN SC (16:41)
[2018-02-13 16:56] LABS: Bedside Glucose 228 mg/dL (70-110)
[2018-02-13 22:45] VITALS: BP 100/36; PULSE 55; RESP 18; TEMP 36.3; O2SAT 95
[2018-02-13 23:20] LABS: Bedside Glucose 147 mg/dL (70-110)
[2018-02-14 02:58] VITALS: BP 100/28; PULSE 59; RESP 18; TEMP 36.3; O2SAT 96
[2018-02-14] MEDS: oxyCODONE 5 MG Tablet PO (03:00)
[2018-02-17 16:11] LABS: Hematocrit 29.9 % (40-54); Hemoglobin 8.8 g/dl (13.0-16.5); Mean Corpuscular Hgb 27.8 pg (27.0-32.0); Mean Corpuscular Volume 94.6 fL (80-94); Red Blood Count 3.16 M/mm3 (4.6-6.2); White Blood Count 6.3 K/mm3 (4.4-11.0)
[2018-02-17 16:12] LABS: Absolute Lymphocyte Count 1.04 X10^3/ul (0.83-4.51); Absolute Neutrophil Count 4.3 X10^3/uL (2.0-7.7); Basophil# 0.03 X10^3/uL; Basophil% 0.5 % (0-1); Differential Indicated SCAN CRITERIA MET; Eosinophil# 0.09 X10^3/uL; Eosinophils% 1.4 % (0-5); Lymphocyte # 1.04 X10^3/ul (4.0); Lymphocyte % 16.5 % (19-41); Mean Corp Hgb Conc 29.4 g/gl (32-36); Mean Platelet Vol. 9.8 fl (6.2-12.0); Monocyte# 0.84 X10^3/uL; Monocyte% 13.4 % (0-10); Neutrophil # 4.29 X10^3/uL (2.7-7.7); Neutrophil % 68.2 % (47-70); POSITIVE COUNT NO; POSITIVE DIFFERENTIAL NO; POSITIVE MORPHOLOGY YES; Platelet Count 125 K/mm3 (150-450); RBC Distribution Width SD 62.9 fl (35.1-43.9)
[2018-02-19 08:53] LABS: Hemoglobin 9.1 g/dl (13.0-16.5); Mean Corp Hgb Conc 29.4 g/gl (32-36); Mean Corpuscular Hgb 27.8 pg (27.0-32.0); Mean Corpuscular Volume 94.8 fL (80-94); Mean Platelet Vol. 9.8 fl (6.2-12.0); POSITIVE COUNT NO; POSITIVE DIFFERENTIAL NO; Platelet Count 116 K/mm3 (150-450); RBC Distribution Width CV 18.7 % (11.6-14.6); RBC Distribution Width SD 62.1 fl (35.1-43.9); Red Blood Count 3.27 M/mm3 (4.6-6.2); White Blood Count 5.6 K/mm3 (4.4-11.0)
[2018-02-19 08:54] LABS: Absolute Lymphocyte Count 1.04 X10^3/ul (0.83-4.51); Absolute Neutrophil Count 3.9 X10^3/uL (2.0-7.7); Basophil% 0.4 % (0-1); Eosinophil# 0.08 X10^3/uL; Eosinophils% 1.4 % (0-5); Lymphocyte # 1.04 X10^3/ul (4.0); Lymphocyte % 18.5 % (19-41); Monocyte# 0.58 X10^3/uL; Monocyte% 10.3 % (0-10); Neutrophil # 3.85 X10^3/uL (2.7-7.7); Neutrophil % 68.5 % (47-70); POSITIVE MORPHOLOGY NO
[2018-02-19 09:29] LABS: Anion Gap 10 (5-15); BUN 36 mg/dL (7-18); BUN/Creat Ratio 10.3 RATIO (10-20); Chloride 101 mmol/L (98-107); Creatinine, Serum 3.51 mg/dL (0.70-1.30); EST Glomerular Filtration Rate 18 mL/min (>60); Est Glom Filt Rate - Afr Amer 22 mL/min (>60); Estimated Creatinine Clearance 25.03 ml/min; Glucose 127 mg/dL (74-106); Potassium 4.2 mmol/L (3.5-5.1); Sodium Level 138 mmol/L (136-145)
[2018-02-20 18:51] LABS: Bedside Glucose 96 mg/dL (70-110)
[2018-02-22 12:29] LABS: Bedside Glucose 119 mg/dL (70-110)
[2018-02-22 12:30] LABS: Bedside Glucose 68 mg/dL (70-110)
[2018-02-22 12:31] LABS: Bedside Glucose 71 mg/dL (70-110)
[2018-02-22 12:33] LABS: Bedside Glucose 147 mg/dL (70-110)
[2018-02-22 13:28] LABS: Bedside Glucose 152 mg/dL (70-110)
[2018-02-22 13:30] LABS: Bedside Glucose 119 mg/dL (70-110)
[2018-02-22 13:46] LABS: Bedside Glucose 124 mg/dL (70-110)
[2018-02-22 13:56] LABS: Bedside Glucose 156 mg/dL (70-110)
[2018-02-22 13:59] LABS: Bedside Glucose 166 mg/dL (70-110)
[2018-02-22 14:02] LABS: Bedside Glucose 139 mg/dL (70-110)
[2018-02-22 14:04] LABS: Bedside Glucose 79 mg/dL (70-110)
[2018-02-22 16:45] LABS: Bedside Glucose 102 mg/dL (70-110)
[2018-02-22 16:47] LABS: Bedside Glucose 89 mg/dL (70-110)
[2018-02-22 16:49] LABS: Bedside Glucose 107 mg/dL (70-110)
[2018-02-23 14:59] LABS: Anion Gap 10 (5-15); BUN 44 mg/dL (7-18); BUN/Creat Ratio 11.7 RATIO (10-20); Calcium,Total 8.3 mg/dL (8.5-10.1); Chloride 106 mmol/L (98-107); Creatinine, Serum 3.77 mg/dL (0.70-1.30); EST Glomerular Filtration Rate 17 mL/min (>60); Est Glom Filt Rate - Afr Amer 21 mL/min (>60); Estimated Creatinine Clearance 23.31 ml/min; Glucose 99 mg/dL (74-106); Potassium 4.5 mmol/L (3.5-5.1); Sodium Level 144 mmol/L (136-145)
== END 2018-02-16 08:00 | disposition skilled nursing facility (03) | DRG 539 ==
PROVIDERS: Internal Medicine; Physician Assistant; Surgery; Admitting Provider Internal Medicine; Family Provider Family Medicine; PCP Family Medicine; Visit Provider Internal Medicine
DX: M86.8X7 Other osteomyelitis, ankle and foot (principal); N18.6 End stage renal disease; A04.72 Enterocolitis due to Clostridium difficile, not specified as recurrent; L97.922 Non-pressure chronic ulcer of unspecified part of left lower leg with fat layer exposed; L97.912 Non-pressure chronic ulcer of unspecified part of right lower leg with fat layer exposed; T87.89 Other complications of amputation stump; Y83.5 Amputation of limb(s) as the cause of abnormal reaction of the patient, or of later complication, without mention of misadventure at the time of the procedure; Z89.511 Acquired absence of right leg below knee; E11.610 Type 2 diabetes mellitus with diabetic neuropathic arthropathy; I73.9 Peripheral vascular disease, unspecified; I25.10 Atherosclerotic heart disease of native coronary artery without angina pectoris; E03.9 Hypothyroidism, unspecified; E11.628 Type 2 diabetes mellitus with other skin complications; I48.0 Paroxysmal atrial fibrillation; R53.81 Other malaise; D69.6 Thrombocytopenia, unspecified; I48.2 Chronic atrial fibrillation; D63.1 Anemia in chronic kidney disease; E11.622 Type 2 diabetes mellitus with other skin ulcer; E11.22 Type 2 diabetes mellitus with diabetic chronic kidney disease; E11.621 Type 2 diabetes mellitus with foot ulcer; L89.629 Pressure ulcer of left heel, unspecified stage; L97.529 Non-pressure chronic ulcer of other part of left foot with unspecified severity; F17.220 Nicotine dependence, chewing tobacco, uncomplicated; B96.5 Pseudomonas (aeruginosa) (mallei) (pseudomallei) as the cause of diseases classified elsewhere; I25.2 Old myocardial infarction; Z79.4 Long term (current) use of insulin; Z99.2 Dependence on renal dialysis; Z95.1 Presence of aortocoronary bypass graft; Z79.82 Long term (current) use of aspirin; Z86.14 Personal history of Methicillin resistant Staphylococcus aureus infection
CPT/HCPCS: 36415; 73718; 73721; 80048; 80053; 80061; 82962; 83036; 83735; 84100; 84134; 84550; 85025; 85652; 86141; 87040; 87070; 87075; 87077; 87184; 87186; 87205; 87640; 90937; 93005; 93306; 93923; 97110; 97162; 97166; J1756; J7030; Q9957; A4216; G0257